=== PATIENT | male | born 1980 | race Caucasian/White ===

== ENCOUNTER 2023-07-07 14:25 | Emergency (ER) | payer OTHER, SELFPAY ==
[2023-07-07 14:38] VITALS: BP 156/95; PULSE 92; RESP 20; TEMP 37.2; O2SAT 98; BMI 28.7
[2023-07-07 15:03] LABS: Basophils Absolute Auto 0 /uL (0-100); Basophils Percent Auto 0.7 % (0-2); Eosinophils Absolute Auto 100 /uL (0-450); Eosinophils Percent Auto 1.9 % (2-4); Hematocrit 41.3 % (41-53); Hemoglobin 14.4 g/dL (13.5-17.5); Lymphocytes Absolute Auto 1300 /uL (1100-4500); Lymphocytes Percent Auto 26.5 % (25-40); Mean Corpuscular HGB Conc 34.8 % (30-36); Mean Corpuscular Volume 91.8 fL (80-100); Monocytes Absolute Auto 400 /uL (0-900); Monocytes Percent Auto 9.2 % (3-14); Neutrophils Absolute Auto 2900 /uL (1500-7000); Neutrophils Percent Auto 61.7 % (50-75); Platelet Count 53 X10^3/uL (150-400); Red Cell Distribution Width 21.1 % (11.6-14.8); White Blood Cell Count 4.7 X10^3/uL (4.5-11.0)
[2023-07-07 15:05] LABS: Add Manual Diff / Slide Review SLIDE REVIEW
[2023-07-07 15:25] LABS: Acetaminophen < 10 ug/mL (10-30); Alanine Aminotransferase 40 IU/L (<50); Albumin 3.8 g/dL (3.5-5.0); Alkaline Phosphatase 185 U/L (38-126); Aspartate Aminotransferase 185 IU/L (17-59); BUN Creatinine Ratio 6.1 (6-22); Bilirubin Total 3.8 mg/dL (0.2-1.3); Blood Urea Nitrogen 4 mg/dL (9-20); Calcium 8.2 mg/dL (8.4-10.2); Carbon Dioxide 22 mmol/L (22-32); Chloride 102 mmol/L (98-107); Estimated Glomerular Filt Rate > 60 mL/min (>60); Ethanol (ETOH) 235 mg/dL; Glucose 102 mg/dL (70-100); HEMOLYSIS < 15 (0-50); Potassium 3.1 mmol/L (3.4-5.1); Salicylate < 1.0 mg/dL (<20); Sodium 141 mmol/L (137-145); Total Protein 7.8 g/dL (6.3-8.2)
[2023-07-07 15:31] LABS: Ovalocytes 1+
[2023-07-07 15:35] LABS: Anisocytosis 3+; Tear Drop Cells 1+
[2023-07-07 15:36] LABS: Schistocytes 1+
[2023-07-07 15:42] LABS: Free T4, Direct Thyroxine 1.19 ng/dL (0.78-2.19)
[2023-07-07] MEDS: LORazepam 0.5 MG TABLET 2 MG PO (15:49)
--- NOTE | 2023-07-07 15:49 | ED.PSYCH ---
HPI - Psych <Andrey Poe MD - Last Filed: 07/13/23 08:34> General Chief Complaint: Toxicology Problem Stated Complaint: Anxiety/Depression Time Seen by Provider: 07/07/23 15:11 Source: patient Mode of arrival: EMS History of Present Illness [place] by chief officer. Patient is accepted at [facility] in [place]. He is here for medical clearance. Patient has no SI or HI. He states he is feeling depressed and anxious. He is going through lot of pressure. He has PTSD as well as going through a divorce and he will be retiring in October and has to look for a new job. He does drink alcohol every day. Last alcohol consumption this morning. No seizures or hallucinations. He is had alcohol withdrawals before and is managed very easily states with hydroxyzine. Patient is cooperative in no distress no altered mental status. He has been taking his medications to help for his anxiety and depression. Related Data Allergies Allergy/AdvReac Type Severity Reaction Status Date / Time anthrax vaccine Allergy Intermediate Rash Verified 07/07/23 14:47 Influenza Virus Vaccines Allergy Intermediate Rash Verified 07/07/23 14:47 alprazolam [From Xanax] AdvReac Intermediate Drowsy Verified 07/07/23 14:47 yellow fever vaccine live AdvReac Intermediate Rash Verified 07/07/23 14:47 zolpidem [From Ambien] AdvReac Intermediate Hallucinati Verified 07/07/23 14:47 ng Review of Systems <Andrey Poe MD - Last Filed: 07/13/23 08:34> Review of Systems Narrative: GENERAL: negative chills, fatigue, malaise, fever, sweats. HEENT: negative sinus pain, ear pain, sore throat RESPIRATORY: negative dyspnea, cough CARDIOVASCULAR: negative chest pain, palpitations GASTROINTESTINAL: negative nausea, vomiting, abdominal pain : negative dysuria, frequency, hematuria MUSCULOSKELETAL: negative muscle or bony pain SKIN: negative rash, skin lesions NEUROLOGIC: negative weakness, numbness negative seizures negative tremor PSYCH: Positive anxiety positive depression negative SI negative HI ROS Unobtainable: All systems reviewed & are unremarkable except as noted in HPI and below Patient History <Andrey Poe MD - Last Filed: 07/13/23 08:34> tobacco type: vaping alcohol intake frequency: 3 or more drinks per day Exam <Andrey Poe MD - Last Filed: 07/13/23 08:34> Narrative Exam Narrative: GENERAL: in no distress, not toxic not dyspneic HEAD: Normocephalic. EYES: Pupils equal round ENT: Mucous membranes moist. NECK: Trachea midline. CARDIOVASCULAR: Regular rate and rhythm RESPIRATORY: Clear to auscultation. Breath sounds equal bilaterally. No wheezes, rales, or rhonchi. GASTROINTESTINAL: Abdomen soft, non-tender EXTREMITIES: No gross deformities. BACK: No flank tenderness. NEURO: AOx4. Clear speech no facial droop SKIN: Warm and dry PSYCH: Slightly anxious. Slightly rapid speech, is very cooperative. No SI no HI. Slight depressed affect. Initial Vital Signs Initial Vital Signs: Vital Signs Temperature 98.9 F 07/07/23 14:38 Pulse Rate 92 H 07/07/23 14:38 Respiratory Rate 20 07/07/23 14:38 Blood Pressure 156/95 H 07/07/23 14:38 Pulse Oximetry 98 07/07/23 14:38 Oxygen Delivery Method Room Air 07/07/23 14:38 <Charly Duarte DO - Last Filed: 07/08/23 23:54> Initial Vital Signs Initial Vital Signs: Vital Signs Temperature 98.9 F 07/07/23 14:38 Pulse Rate 92 H 07/07/23 14:38 Respiratory Rate 20 07/07/23 14:38 Blood Pressure 156/95 H 07/07/23 14:38 Pulse Oximetry 98 07/07/23 14:38 Oxygen Delivery Method Room Air 07/07/23 14:38 <Julio Villar DO - Last Filed: 07/08/23 11:39> Initial Vital Signs Initial Vital Signs: Vital Signs Temperature 98.9 F 07/07/23 14:38 Pulse Rate 92 H 07/07/23 14:38 Respiratory Rate 20 07/07/23 14:38 Blood Pressure 156/95 H 07/07/23 14:38 Pulse Oximetry 98 07/07/23 14:38 Oxygen Delivery Method Room Air 07/07/23 14:38 Course <Andrey Poe MD - Last Filed: 07/13/23 08:34> Orders Ordered: Discontinued Medications Lorazepam (Lorazepam 0.5 Mg Tablet) 2 mg PO NOW ONE Stop: 07/07/23 15:21 Last Admin: 07/07/23 15:49 Dose: 2 mg Documented By: KATERINE Nicotine (Nicotine 21 Mg Patch) 21 mg TOP NOW ONE Stop: 07/08/23 01:13 Last Admin: 07/08/23 02:05 Dose: 21 mg Documented By: TRACI Phenobarbital (Phenobarbital 65 Mg/Ml Vial) 260 mg IV NOW ONE Stop: 07/08/23 00:56 Last Admin: 07/08/23 01:03 Dose: 260 mg Documented By: BAN Phenobarbital (Phenobarbital 65 Mg/Ml Vial) 260 mg IV NOW ONE Stop: 07/08/23 06:17 Last Admin: 07/08/23 06:54 Dose: 260 mg Documented By: BAN Vital Signs Vital signs: Vital Signs - 8 hr 07/08/23 04:00 07/08/23 04:00 07/08/23 04:30 Pulse Rate 102 H 103 H Respiratory Rate 18 Blood Pressure 134/81 Pulse Oximetry 92 93 Oxygen Delivery Method 07/08/23 04:30 07/08/23 05:00 07/08/23 05:00 Pulse Rate 95 H Respiratory Rate Blood Pressure 129/81 142/78 H Pulse Oximetry 93 Oxygen Delivery Method Room Air 07/08/23 05:30 07/08/23 06:00 07/08/23 06:00 Pulse Rate 108 H 113 H Respiratory Rate 23 19 Blood Pressure 124/74 Pulse Oximetry 93 92 Oxygen Delivery Method 07/08/23 06:30 07/08/23 07:00 07/08/23 07:00 Pulse Rate 126 H 110 H Respiratory Rate 13 Blood Pressure 131/82 Pulse Oximetry 96 97 Oxygen Delivery Method 07/08/23 07:30 07/08/23 08:00 07/08/23 08:00 Pulse Rate 106 H 112 H Respiratory Rate 25 H 15 Blood Pressure 143/74 H Pulse Oximetry 99 Oxygen Delivery Method 07/08/23 08:30 07/08/23 08:50 07/08/23 08:50 Pulse Rate 121 H 119 H Respiratory Rate 14 17 Blood Pressure 158/83 H Pulse Oximetry 97 96 Oxygen Delivery Method 07/08/23 09:00 07/08/23 09:00 07/08/23 09:30 Pulse Rate 116 H 116 H Respiratory Rate 15 Blood Pressure 154/79 H Pulse Oximetry 98 98 Oxygen Delivery Method 07/08/23 10:00 07/08/23 10:00 07/08/23 10:30 Pulse Rate 118 H 109 H Respiratory Rate 16 11 L Blood Pressure 148/83 H Pulse Oximetry 95 94 Oxygen Delivery Method 07/08/23 11:00 07/08/23 11:00 Pulse Rate 118 H Respiratory Rate Blood Pressure 152/70 H Pulse Oximetry 98 Oxygen Delivery Method <Charly Duarte DO - Last Filed: 07/08/23 23:54> Orders Ordered: Discontinued Medications Lorazepam (Lorazepam 0.5 Mg Tablet) 2 mg PO NOW ONE Stop: 07/07/23 15:21 Last Admin: 07/07/23 15:49 Dose: 2 mg Documented By: KATERINE Nicotine (Nicotine 21 Mg Patch) 21 mg TOP NOW ONE Stop: 07/08/23 01:13 Last Admin: 07/08/23 02:05 Dose: 21 mg Documented By: TRACI Phenobarbital (Phenobarbital 65 Mg/Ml Vial) 260 mg IV NOW ONE Stop: 07/08/23 00:56 Last Admin: 07/08/23 01:03 Dose: 260 mg Documented By: BAN Phenobarbital (Phenobarbital 65 Mg/Ml Vial) 260 mg IV NOW ONE Stop: 07/08/23 06:17 Last Admin: 07/08/23 06:54 Dose: 260 mg Documented By: BAN Vital Signs Vital signs: Vital Signs - 8 hr 07/08/23 04:00 07/08/23 04:00 07/08/23 04:30 Pulse Rate 102 H 103 H Respiratory Rate 18 Blood Pressure 134/81 Pulse Oximetry 92 93 Oxygen Delivery Method 07/08/23 04:30 07/08/23 05:00 07/08/23 05:00 Pulse Rate 95 H Respiratory Rate Blood Pressure 129/81 142/78 H Pulse Oximetry 93 Oxygen Delivery Method Room Air 07/08/23 05:30 07/08/23 06:00 07/08/23 06:00 Pulse Rate 108 H 113 H Respiratory Rate 23 19 Blood Pressure 124/74 Pulse Oximetry 93 92 Oxygen Delivery Method 07/08/23 06:30 07/08/23 07:00 07/08/23 07:00 Pulse Rate 126 H 110 H Respiratory Rate 13 Blood Pressure 131/82 Pulse Oximetry 96 97 Oxygen Delivery Method 07/08/23 07:30 07/08/23 08:00 07/08/23 08:00 Pulse Rate 106 H 112 H Respiratory Rate 25 H 15 Blood Pressure 143/74 H Pulse Oximetry 99 Oxygen Delivery Method 07/08/23 08:30 07/08/23 08:50 07/08/23 08:50 Pulse Rate 121 H 119 H Respiratory Rate 14 17 Blood Pressure 158/83 H Pulse Oximetry 97 96 Oxygen Delivery Method 07/08/23 09:00 07/08/23 09:00 07/08/23 09:30 Pulse Rate 116 H 116 H Respiratory Rate 15 Blood Pressure 154/79 H Pulse Oximetry 98 98 Oxygen Delivery Method 07/08/23 10:00 07/08/23 10:00 07/08/23 10:30 Pulse Rate 118 H 109 H Respiratory Rate 16 11 L Blood Pressure 148/83 H Pulse Oximetry 95 94 Oxygen Delivery Method 07/08/23 11:00 07/08/23 11:00 Pulse Rate 118 H Respiratory Rate Blood Pressure 152/70 H Pulse Oximetry 98 Oxygen Delivery Method <Julio Villar DO - Last Filed: 07/08/23 11:39> Orders Ordered: Discontinued Medications Lorazepam (Lorazepam 0.5 Mg Tablet) 2 mg PO NOW ONE Stop: 07/07/23 15:21 Last Admin: 07/07/23 15:49 Dose: 2 mg Documented By: KATERINE Nicotine (Nicotine 21 Mg Patch) 21 mg TOP NOW ONE Stop: 07/08/23 01:13 Last Admin: 07/08/23 02:05 Dose: 21 mg Documented By: TRACI Phenobarbital (Phenobarbital 65 Mg/Ml Vial) 260 mg IV NOW ONE Stop: 07/08/23 00:56 Last Admin: 07/08/23 01:03 Dose: 260 mg Documented By: BAN Phenobarbital (Phenobarbital 65 Mg/Ml Vial) 260 mg IV NOW ONE Stop: 07/08/23 06:17 Last Admin: 07/08/23 06:54 Dose: 260 mg Documented By: BAN Vital Signs Vital signs: Vital Signs - 8 hr 07/08/23 04:00 07/08/23 04:00 07/08/23 04:30 Pulse Rate 102 H 103 H Respiratory Rate 18 Blood Pressure 134/81 Pulse Oximetry 92 93 Oxygen Delivery Method 07/08/23 04:30 07/08/23 05:00 07/08/23 05:00 Pulse Rate 95 H Respiratory Rate Blood Pressure 129/81 142/78 H Pulse Oximetry 93 Oxygen Delivery Method Room Air 07/08/23 05:30 07/08/23 06:00 07/08/23 06:00 Pulse Rate 108 H 113 H Respiratory Rate 23 19 Blood Pressure 124/74 Pulse Oximetry 93 92 Oxygen Delivery Method 07/08/23 06:30 07/08/23 07:00 07/08/23 07:00 Pulse Rate 126 H 110 H Respiratory Rate 13 Blood Pressure 131/82 Pulse Oximetry 96 97 Oxygen Delivery Method 07/08/23 07:30 07/08/23 08:00 07/08/23 08:00 Pulse Rate 106 H 112 H Respiratory Rate 25 H 15 Blood Pressure 143/74 H Pulse Oximetry 99 Oxygen Delivery Method 07/08/23 08:30 07/08/23 08:50 07/08/23 08:50 Pulse Rate 121 H 119 H Respiratory Rate 14 17 Blood Pressure 158/83 H Pulse Oximetry 97 96 Oxygen Delivery Method 07/08/23 09:00 07/08/23 09:00 07/08/23 09:30 Pulse Rate 116 H 116 H Respiratory Rate 15 Blood Pressure 154/79 H Pulse Oximetry 98 98 Oxygen Delivery Method 07/08/23 10:00 07/08/23 10:00 07/08/23 10:30 Pulse Rate 118 H 109 H Respiratory Rate 16 11 L Blood Pressure 148/83 H Pulse Oximetry 95 94 Oxygen Delivery Method 07/08/23 11:00 07/08/23 11:00 Pulse Rate 118 H Respiratory Rate Blood Pressure 152/70 H Pulse Oximetry 98 Oxygen Delivery Method MDM - Psych <Andrey Poe MD - Last Filed: 07/13/23 08:34> Lab Data 07/07/23 14:55 07/07/23 13:45 Labs: Lab Results 07/07/23 07/07/23 07/07/23 Range/Units 13:45 14:55 15:21 WBC 4.7 (4.5-11.0) X10^3/uL RBC 4.50 (4.5-5.9) X10^6/uL Hgb 14.4 (13.5-17.5) g/dL Hct 41.3 (41-53) % MCV 91.8 (80-100) fL MCH 32.0 (26-34) PG MCHC 34.8 (30-36) % RDW 21.1 H (11.6-14.8) % Plt Count 53 L (150-400) X10^3/uL Neut % (Auto) 61.7 (50-75) % Lymph % (Auto) 26.5 (25-40) % Cochran % (Auto) 9.2 (3-14) % Eos % (Auto) 1.9 L (2-4) % Baso % (Auto) 0.7 (0-2) % Neut # (Auto) 2900 (0132-4079) /uL Lymph # (Auto) 1300 (0687-3292) /uL Cochran # (Auto) 400 (0-900) /uL Eos # (Auto) 100 (0-450) /uL Baso # (Auto) 0 (0-100) /uL RBC Morphology See below Anisocytosis 3+ H Tear Drop Cells 1+ H Ovalocytes 1+ H Schistocytes 1+ H Sodium 141 (137-145) mmol/L Potassium 3.1 L (3.4-5.1) mmol/L Chloride 102 (98-107) mmol/L Carbon Dioxide 22 (22-32) mmol/L BUN 4 L (9-20) mg/dL Creatinine 0.66 (0.66-1.25) mg/dL Estimated GFR > 60 (>60) mL/min BUN/Creatinine Ratio 6.1 (6-22) Glucose 102 H (70-100) mg/dL Calcium 8.2 L (8.4-10.2) mg/dL Total Bilirubin 3.8 H (0.2-1.3) mg/dL AST 185 H (17-59) IU/L ALT 40 (<50) IU/L Alkaline Phosphatase 185 H (38-126) U/L Total Protein 7.8 (6.3-8.2) g/dL Albumin 3.8 (3.5-5.0) g/dL Globulin 4.0 (1.7-4.1) g/dL Albumin/Globulin Ratio 1.0 (1.0-2.8) TSH 1.84 (0.47-4.68) uIU/mL Free T4 1.19 (0.78-2.19) ng/dL Urine Color Yellow Urine Appearance Clear Urine pH 7.0 (4.5-8.0) Ur Specific [place] 1.020 (1.000-1.035) Urine Protein 1+ H (Negative) Urine Glucose (UA) Negative (Negative) g/dL Urine Ketones 1+ H (NEGATIVE) Urine Occult Blood Negative (Negative) Urine Nitrate Negative (Negative) Urine Bilirubin 2+ H (NEGATIVE) Ur Bilirubin Confirm Positive H (Negative) Urine Urobilinogen 2.0 H (0.2) E.U./dL Ur Leukocyte Esterase Negative (NEGATIVE) Urine RBC 1-5/hpf (0-5/HPF) Urine WBC (0-5/HPF) Ur Squamous Epith Cells (0-5/HPF) Ur Transition Epith Cell Ur Renal Epithelial Cell Calcium Oxalate Crystal Uric Acid Crystals Triple Phos Crystals Other Crystals Amorphous Sediment Urine Bacteria (None) Hyaline Casts Granular Casts RBC Casts WBC Casts Other Casts Urine Mucus Urine Trichomonas Urine Yeast Urine Sperm Ur Culture Indicated? Micro UA Comment Salicylates < 1.0 (<20) mg/dL U Opiates 300ng/mL cut (Negative) Ur Oxycodone Screen (Negative) Urine Methadone Screen (Negative) Acetaminophen < 10 (10-30) ug/mL Ur Barbiturates Screen (Negative) U Tricyclic Antidepress (Negative) Ur Phencyclidine Scrn (Negative) Ur Amphetamines Screen (Negative) U Methamphetamines Scrn (Negative) Ur MDMA Scrn (Ecstasy) (Negative) U Benzodiazepines Scrn (Negative) Urine Cocaine Screen (Negative) U Marijuana (THC) Screen (Negative) Ethyl Alcohol 235 H ( - 10) mg/dL 07/07/23 07/07/23 07/07/23 Range/Units 15:21 15:21 15:21 WBC (4.5-11.0) X10^3/uL RBC (4.5-5.9) X10^6/uL Hgb (13.5-17.5) g/dL Hct (41-53) % MCV (80-100) fL MCH (26-34) PG MCHC (30-36) % RDW (11.6-14.8) % Plt Count (150-400) X10^3/uL Neut % (Auto) (50-75) % Lymph % (Auto) (25-40) % Cochran % (Auto) (3-14) % Eos % (Auto) (2-4) % Baso % (Auto) (0-2) % Neut # (Auto) (1130-3584) /uL Lymph # (Auto) (2602-9434) /uL Cochran # (Auto) (0-900) /uL Eos # (Auto) (0-450) /uL Baso # (Auto) (0-100) /uL RBC Morphology Anisocytosis Tear Drop Cells Ovalocytes Schistocytes Sodium (137-145) mmol/L Potassium (3.4-5.1) mmol/L Chloride (98-107) mmol/L Carbon Dioxide (22-32) mmol/L BUN (9-20) mg/dL Creatinine (0.66-1.25) mg/dL Estimated GFR (>60) mL/min BUN/Creatinine Ratio (6-22) Glucose (70-100) mg/dL Calcium (8.4-10.2) mg/dL Total Bilirubin (0.2-1.3) mg/dL AST (17-59) IU/L ALT (<50) IU/L Alkaline Phosphatase (38-126) U/L Total Protein (6.3-8.2) g/dL Albumin (3.5-5.0) g/dL Globulin (1.7-4.1) g/dL Albumin/Globulin Ratio (1.0-2.8) TSH (0.47-4.68) uIU/mL Free T4 (0.78-2.19) ng/dL Urine Color Urine Appearance Urine pH (4.5-8.0) Ur Specific [place] (1.000-1.035) Urine Protein (Negative) Urine Glucose (UA) (Negative) g/dL Urine Ketones (NEGATIVE) Urine Occult Blood (Negative) Urine Nitrate (Negative) Urine Bilirubin (NEGATIVE) Ur Bilirubin Confirm (Negative) Urine Urobilinogen (0.2) E.U./dL Ur Leukocyte Esterase (NEGATIVE) Urine RBC Cancelled (0-5/HPF) Urine WBC 1-5/hpf Cancelled (0-5/HPF) Ur Squamous Epith Cells 1-5 /hpf Cancelled (0-5/HPF) Ur Transition Epith Cell Cancelled Ur Renal Epithelial Cell Cancelled Calcium Oxalate Crystal Cancelled Uric Acid Crystals Cancelled Triple Phos Crystals Cancelled Other Crystals Cancelled Amorphous Sediment Cancelled Urine Bacteria Occasional (0-1) (None) Hyaline Casts Granular Casts RBC Casts WBC Casts Other Casts Urine Mucus Urine Trichomonas Urine Yeast Urine Sperm Ur Culture Indicated? Micro UA Comment Salicylates (<20) mg/dL U Opiates 300ng/mL cut (Negative) Ur Oxycodone Screen (Negative) Urine Methadone Screen (Negative) Acetaminophen (10-30) ug/mL Ur Barbiturates Screen (Negative) U Tricyclic Antidepress (Negative) Ur Phencyclidine Scrn (Negative) Ur Amphetamines Screen (Negative) U Methamphetamines Scrn (Negative) Ur MDMA Scrn (Ecstasy) (Negative) U Benzodiazepines Scrn (Negative) Urine Cocaine Screen (Negative) U Marijuana (THC) Screen (Negative) Ethyl Alcohol ( - 10) mg/dL 07/07/23 07/07/23 Range/Units 15:21 15:21 WBC (4.5-11.0) X10^3/uL RBC (4.5-5.9) X10^6/uL Hgb (13.5-17.5) g/dL Hct (41-53) % MCV (80-100) fL MCH (26-34) PG MCHC (30-36) % RDW (11.6-14.8) % Plt Count (150-400) X10^3/uL Neut % (Auto) (50-75) % Lymph % (Auto) (25-40) % Cochran % (Auto) (3-14) % Eos % (Auto) (2-4) % Baso % (Auto) (0-2) % Neut # (Auto) (4599-3318) /uL Lymph # (Auto) (7482-6079) /uL Cochran # (Auto) (0-900) /uL Eos # (Auto) (0-450) /uL Baso # (Auto) (0-100) /uL RBC Morphology Anisocytosis Tear Drop Cells Ovalocytes Schistocytes Sodium (137-145) mmol/L Potassium (3.4-5.1) mmol/L Chloride (98-107) mmol/L Carbon Dioxide (22-32) mmol/L BUN (9-20) mg/dL Creatinine (0.66-1.25) mg/dL Estimated GFR (>60) mL/min BUN/Creatinine Ratio (6-22) Glucose (70-100) mg/dL Calcium (8.4-10.2) mg/dL Total Bilirubin (0.2-1.3) mg/dL AST (17-59) IU/L ALT (<50) IU/L Alkaline Phosphatase (38-126) U/L Total Protein (6.3-8.2) g/dL Albumin (3.5-5.0) g/dL Globulin (1.7-4.1) g/dL Albumin/Globulin Ratio (1.0-2.8) TSH (0.47-4.68) uIU/mL Free T4 (0.78-2.19) ng/dL Urine Color Urine Appearance Urine pH (4.5-8.0) Ur Specific [place] (1.000-1.035) Urine Protein (Negative) Urine Glucose (UA) (Negative) g/dL Urine Ketones (NEGATIVE) Urine Occult Blood (Negative) Urine Nitrate (Negative) Urine Bilirubin (NEGATIVE) Ur Bilirubin Confirm (Negative) Urine Urobilinogen (0.2) E.U./dL Ur Leukocyte Esterase (NEGATIVE) Urine RBC (0-5/HPF) Urine WBC (0-5/HPF) Ur Squamous Epith Cells (0-5/HPF) Ur Transition Epith Cell Ur Renal Epithelial Cell Calcium Oxalate Crystal Uric Acid Crystals Triple Phos Crystals Other Crystals Amorphous Sediment Urine Bacteria Cancelled (None) Hyaline Casts Cancelled Granular Casts Cancelled RBC Casts Cancelled WBC Casts Cancelled Other Casts Cancelled Urine Mucus Cancelled Urine Trichomonas Cancelled Urine Yeast Cancelled Urine Sperm Cancelled Ur Culture Indicated? TNP Cancelled Micro UA Comment Cancelled Salicylates (<20) mg/dL U Opiates 300ng/mL cut Negative (Negative) Ur Oxycodone Screen Negative (Negative) Urine Methadone Screen Negative (Negative) Acetaminophen (10-30) ug/mL Ur Barbiturates Screen Negative (Negative) U Tricyclic Antidepress Negative (Negative) Ur Phencyclidine Scrn Negative (Negative) Ur Amphetamines Screen Negative (Negative) U Methamphetamines Scrn Negative (Negative) Ur MDMA Scrn (Ecstasy) Negative (Negative) U Benzodiazepines Scrn Negative (Negative) Urine Cocaine Screen Negative (Negative) U Marijuana (THC) Screen Positive H (Negative) Ethyl Alcohol ( - 10) mg/dL Urine Dip Bedside Urine Glucose Negative Bedside Urine Bilirubin - Negative Bedside Urine Ketone + 15 Urine Specific [place] 1.015 Bedside Urine Occult Blood - Negative Bedside Urine pH 6.0 Bedside Urine Protein +/- 15 Bedside Urine Urobilinogen - Negative Bedside Urine Nitrite - Negative Bedside Urine Leukocytes +/- 15 Esterase MDM Narrative Medical decision making [place]om[place] by chief officer. Patient is accepted at [facility] in [place]. He is here for medical clearance. Patient has no SI or HI. He states he is feeling depressed and anxious. He is going through lot of pressure. He has PTSD as well as going through a divorce and he will be retiring in October and has to look for a new job. He does drink alcohol every day. Last alcohol consumption this morning. No seizures or hallucinations. He is had alcohol withdrawals before and is managed very easily states with hydroxyzine. Patient is cooperative in no distress no altered mental status. He has been taking his medications to help for his anxiety and depression. After history and exam CBC CMP drug screen Tylenol aspirin TSH social work consult MDM CC: Depression anxiety alcohol abuse Complicating co-morbidities: PTSD/depression/anxiety/major life changes Data collected from: Patient Medical records reviewed: No recent visit for this complaint Differential considered: Includes but not limited to anxiety depression alcohol abuse Exam documented above, pertinent findings include: Cooperative, slight flat affect Lab Test results independently reviewed as above. 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 He is cooperative and voluntary, is motivated to go to [facility] Discussion: Appropriate for transfer. Patient is already arranged to go to [facility]. He is voluntary Diagnosis: Anxiety/depression 6:00 p.m. Lui: Sign out to Dr Duarte, patient has been medically cleared but awaiting for provider at [facility] to call back for acceptance. Social work has seen patient here as well <Charly Duarte DO - Last Filed: 07/08/23 23:54> Lab Data Labs: Lab Results 07/07/23 07/07/23 07/07/23 Range/Units 13:45 14:55 15:21 WBC 4.7 (4.5-11.0) X10^3/uL RBC 4.50 (4.5-5.9) X10^6/uL Hgb 14.4 (13.5-17.5) g/dL Hct 41.3 (41-53) % MCV 91.8 (80-100) fL MCH 32.0 (26-34) PG MCHC 34.8 (30-36) % RDW 21.1 H (11.6-14.8) % Plt Count 53 L (150-400) X10^3/uL Neut % (Auto) 61.7 (50-75) % Lymph % (Auto) 26.5 (25-40) % [place]ran % (Auto) 9.2 (3-14) % Eos % (Auto) 1.9 L (2-4) % Baso % (Auto) 0.7 (0-2) % Neut # (Auto) 2900 (6506-0922) /uL Lymph # (Auto) 1300 (3056-6751) /uL [place]ran # (Auto) 400 (0-900) /uL Eos # (Auto) 100 (0-450) /uL Baso # (Auto) 0 (0-100) /uL RBC Morphology See below Anisocytosis 3+ H Tear Drop Cells 1+ H Ovalocytes 1+ H Schistocytes 1+ H Sodium 141 (137-145) mmol/L Potassium 3.1 L (3.4-5.1) mmol/L Chloride 102 (98-107) mmol/L Carbon Dioxide 22 (22-32) mmol/L BUN 4 L (9-20) mg/dL Creatinine 0.66 (0.66-1.25) mg/dL Estimated GFR > 60 (>60) mL/min BUN/Creatinine Ratio 6.1 (6-22) Glucose 102 H (70-100) mg/dL Calcium 8.2 L (8.4-10.2) mg/dL Total Bilirubin 3.8 H (0.2-1.3) mg/dL AST 185 H (17-59) IU/L ALT 40 (<50) IU/L Alkaline Phosphatase 185 H (38-126) U/L Total Protein 7.8 (6.3-8.2) g/dL Albumin 3.8 (3.5-5.0) g/dL Globulin 4.0 (1.7-4.1) g/dL Albumin/Globulin Ratio 1.0 (1.0-2.8) TSH 1.84 (0.47-4.68) uIU/mL Free T4 1.19 (0.78-2.19) ng/dL Urine Color Yellow Urine Appearance Clear Urine pH 7.0 (4.5-8.0) Ur Specific [place] 1.020 (1.000-1.035) Urine Protein 1+ H (Negative) Urine Glucose (UA) Negative (Negative) g/dL Urine Ketones 1+ H (NEGATIVE) Urine Occult Blood Negative (Negative) Urine Nitrate Negative (Negative) Urine Bilirubin 2+ H (NEGATIVE) Ur Bilirubin Confirm Positive H (Negative) Urine Urobilinogen 2.0 H (0.2) E.U./dL Ur Leukocyte Esterase Negative (NEGATIVE) Urine RBC 1-5/hpf (0-5/HPF) Urine WBC (0-5/HPF) Ur Squamous Epith Cells (0-5/HPF) Ur Transition Epith Cell Ur Renal Epithelial Cell Calcium Oxalate Crystal Uric Acid Crystals Triple Phos Crystals Other Crystals Amorphous Sediment Urine Bacteria (None) Hyaline Casts Granular Casts RBC Casts WBC Casts Other Casts Urine Mucus Urine Trichomonas Urine Yeast Urine Sperm Ur Culture Indicated? Micro UA Comment Salicylates < 1.0 (<20) mg/dL U Opiates 300ng/mL cut (Negative) Ur Oxycodone Screen (Negative) Urine Methadone Screen (Negative) Acetaminophen < 10 (10-30) ug/mL Ur Barbiturates Screen (Negative) U Tricyclic Antidepress (Negative) Ur Phencyclidine Scrn (Negative) Ur Amphetamines Screen (Negative) U Methamphetamines Scrn (Negative) Ur MDMA Scrn (Ecstasy) (Negative) U Benzodiazepines Scrn (Negative) Urine Cocaine Screen (Negative) U Marijuana (THC) Screen (Negative) Ethyl Alcohol 235 H ( - 10) mg/dL 07/07/23 07/07/23 07/07/23 Range/Units 15:21 15:21 15:21 WBC (4.5-11.0) X10^3/uL RBC (4.5-5.9) X10^6/uL Hgb (13.5-17.5) g/dL Hct (41-53) % MCV (80-100) fL MCH (26-34) PG MCHC (30-36) % RDW (11.6-14.8) % Plt Count (150-400) X10^3/uL Neut % (Auto) (50-75) % Lymph % (Auto) (25-40) % Cochran % (Auto) (3-14) % Eos % (Auto) (2-4) % Baso % (Auto) (0-2) % Neut # (Auto) (8847-7064) /uL Lymph # (Auto) (3166-4408) /uL Cochran # (Auto) (0-900) /uL Eos # (Auto) (0-450) /uL Baso # (Auto) (0-100) /uL RBC Morphology Anisocytosis Tear Drop Cells Ovalocytes Schistocytes Sodium (137-145) mmol/L Potassium (3.4-5.1) mmol/L Chloride (98-107) mmol/L Carbon Dioxide (22-32) mmol/L BUN (9-20) mg/dL Creatinine (0.66-1.25) mg/dL Estimated GFR (>60) mL/min BUN/Creatinine Ratio (6-22) Glucose (70-100) mg/dL Calcium (8.4-10.2) mg/dL Total Bilirubin (0.2-1.3) mg/dL AST (17-59) IU/L ALT (<50) IU/L Alkaline Phosphatase (38-126) U/L Total Protein (6.3-8.2) g/dL Albumin (3.5-5.0) g/dL Globulin (1.7-4.1) g/dL Albumin/Globulin Ratio (1.0-2.8) TSH (0.47-4.68) uIU/mL Free T4 (0.78-2.19) ng/dL Urine Color Urine Appearance Urine pH (4.5-8.0) Ur Specific [place] (1.000-1.035) Urine Protein (Negative) Urine Glucose (UA) (Negative) g/dL Urine Ketones (NEGATIVE) Urine Occult Blood (Negative) Urine Nitrate (Negative) Urine Bilirubin (NEGATIVE) Ur Bilirubin Confirm (Negative) Urine Urobilinogen (0.2) E.U./dL Ur Leukocyte Esterase (NEGATIVE) Urine RBC Cancelled (0-5/HPF) Urine WBC 1-5/hpf Cancelled (0-5/HPF) Ur Squamous Epith Cells 1-5 /hpf Cancelled (0-5/HPF) Ur Transition Epith Cell Cancelled Ur Renal Epithelial Cell Cancelled Calcium Oxalate Crystal Cancelled Uric Acid Crystals Cancelled Triple Phos Crystals Cancelled Other Crystals Cancelled Amorphous Sediment Cancelled Urine Bacteria Occasional (0-1) (None) Hyaline Casts Granular Casts RBC Casts WBC Casts Other Casts Urine Mucus Urine Trichomonas Urine Yeast Urine Sperm Ur Culture Indicated? Micro UA Comment Salicylates (<20) mg/dL U Opiates 300ng/mL cut (Negative) Ur Oxycodone Screen (Negative) Urine Methadone Screen (Negative) Acetaminophen (10-30) ug/mL Ur Barbiturates Screen (Negative) U Tricyclic Antidepress (Negative) Ur Phencyclidine Scrn (Negative) Ur Amphetamines Screen (Negative) U Methamphetamines Scrn (Negative) Ur MDMA Scrn (Ecstasy) (Negative) U Benzodiazepines Scrn (Negative) Urine Cocaine Screen (Negative) U Marijuana (THC) Screen (Negative) Ethyl Alcohol ( - 10) mg/dL 07/07/23 07/07/23 Range/Units 15:21 15:21 WBC (4.5-11.0) X10^3/uL RBC (4.5-5.9) X10^6/uL Hgb (13.5-17.5) g/dL Hct (41-53) % MCV (80-100) fL MCH (26-34) PG MCHC (30-36) % RDW (11.6-14.8) % Plt Count (150-400) X10^3/uL Neut % (Auto) (50-75) % Lymph % (Auto) (25-40) % Cochran % (Auto) (3-14) % Eos % (Auto) (2-4) % Baso % (Auto) (0-2) % Neut # (Auto) (6465-1183) /uL Lymph # (Auto) (6951-4341) /uL Cochran # (Auto) (0-900) /uL Eos # (Auto) (0-450) /uL Baso # (Auto) (0-100) /uL RBC Morphology Anisocytosis Tear Drop Cells Ovalocytes Schistocytes Sodium (137-145) mmol/L Potassium (3.4-5.1) mmol/L Chloride (98-107) mmol/L Carbon Dioxide (22-32) mmol/L BUN (9-20) mg/dL Creatinine (0.66-1.25) mg/dL Estimated GFR (>60) mL/min BUN/Creatinine Ratio (6-22) Glucose (70-100) mg/dL Calcium (8.4-10.2) mg/dL Total Bilirubin (0.2-1.3) mg/dL AST (17-59) IU/L ALT (<50) IU/L Alkaline Phosphatase (38-126) U/L Total Protein (6.3-8.2) g/dL Albumin (3.5-5.0) g/dL Globulin (1.7-4.1) g/dL Albumin/Globulin Ratio (1.0-2.8) TSH (0.47-4.68) uIU/mL Free T4 (0.78-2.19) ng/dL Urine Color Urine Appearance Urine pH (4.5-8.0) Ur Specific [place] (1.000-1.035) Urine Protein (Negative) Urine Glucose (UA) (Negative) g/dL Urine Ketones (NEGATIVE) Urine Occult Blood (Negative) Urine Nitrate (Negative) Urine Bilirubin (NEGATIVE) Ur Bilirubin Confirm (Negative) Urine Urobilinogen (0.2) E.U./dL Ur Leukocyte Esterase (NEGATIVE) Urine RBC (0-5/HPF) Urine WBC (0-5/HPF) Ur Squamous Epith Cells (0-5/HPF) Ur Transition Epith Cell Ur Renal Epithelial Cell Calcium Oxalate Crystal Uric Acid Crystals Triple Phos Crystals Other Crystals Amorphous Sediment Urine Bacteria Cancelled (None) Hyaline Casts Cancelled Granular Casts Cancelled RBC Casts Cancelled WBC Casts Cancelled Other Casts Cancelled Urine Mucus Cancelled Urine Trichomonas Cancelled Urine Yeast Cancelled Urine Sperm Cancelled Ur Culture Indicated? TNP Cancelled Micro UA Comment Cancelled Salicylates (<20) mg/dL U Opiates 300ng/mL cut Negative (Negative) Ur Oxycodone Screen Negative (Negative) Urine Methadone Screen Negative (Negative) Acetaminophen (10-30) ug/mL Ur Barbiturates Screen Negative (Negative) U Tricyclic Antidepress Negative (Negative) Ur Phencyclidine Scrn Negative (Negative) Ur Amphetamines Screen Negative (Negative) U Methamphetamines Scrn Negative (Negative) Ur MDMA Scrn (Ecstasy) Negative (Negative) U Benzodiazepines Scrn Negative (Negative) Urine Cocaine Screen Negative (Negative) U Marijuana (THC) Screen Positive H (Negative) Ethyl Alcohol ( - 10) mg/dL Urine Dip Bedside Urine Glucose Negative Bedside Urine Bilirubin - Negative Bedside Urine Ketone + 15 Urine Specific [place] 1.015 Bedside Urine Occult Blood - Negative Bedside Urine pH 6.0 Bedside Urine Protein +/- 15 Bedside Urine Urobilinogen - Negative Bedside Urine Nitrite - Negative Bedside Urine Leukocytes +/- 15 Esterase MDM Narrative Medical decision [place] Accompanied by chief officer. Patient is accepted at [facility] in [place]. He is here for medical clearance. Patient has no SI or HI. He states he is feeling depressed and anxious. He is going through lot of pressure. He has PTSD as well as going through a divorce and he will be retiring in October and has to look for a new job. He does drink alcohol every day. Last alcohol consumption this morning. No seizures or hallucinations. He is had alcohol withdrawals before and is managed very easily states with hydroxyzine. Patient is cooperative in no distress no altered mental status. He has been taking his medications to help for his anxiety and depression. After history and exam CBC CMP drug screen Tylenol aspirin TSH social work consult MDM CC: Depression anxiety alcohol abuse Complicating co-morbidities: PTSD/depression/anxiety/major life changes Data collected from: Patient Medical records reviewed: No recent visit for this complaint Differential considered: Includes but not limited to anxiety depression alcohol abuse Exam documented above, pertinent findings include: Cooperative, slight flat affect Lab Test results independently reviewed as above. 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 He is cooperative and voluntary, is motivated to go to [facility] Discussion: Appropriate for transfer. Patient is already arranged to go to [facility]. He is voluntary Diagnosis: Anxiety/depression 6:00 p.m. Lui: Sign out to Dr Duarte, patient has been medically cleared but awaiting for provider at [facility] to call back for acceptance. Social work has seen patient here as well [Link] (Gerald) Patient received in sign out from [Lui]. I have reviewed the clinical course and performed an independent history and physical exam. 2000 - per ACADEMIC ADVISING DIRECTOR receiving physician at [facility] had no prior authorization or knowledge of this patient and after discussion with our social services designee it is thought that patient is more appropriate for intensive outpatient treatment <Julio Villar DO - Last Filed: 07/08/23 11:39> Lab Data Labs: Lab Results 07/07/23 07/07/23 07/07/23 Range/Units 13:45 14:55 15:21 WBC 4.7 (4.5-11.0) X10^3/uL RBC 4.50 (4.5-5.9) X10^6/uL Hgb 14.4 (13.5-17.5) g/dL Hct 41.3 (41-53) % MCV 91.8 (80-100) fL MCH 32.0 (26-34) PG MCHC 34.8 (30-36) % RDW 21.1 H (11.6-14.8) % Plt Count 53 L (150-400) X10^3/uL Neut % (Auto) 61.7 (50-75) % Lymph % (Auto) 26.5 (25-40) % Cochran % (Auto) 9.2 (3-14) % Eos % (Auto) 1.9 L (2-4) % Baso % (Auto) 0.7 (0-2) % Neut # (Auto) 2900 (3627-4743) /uL Lymph # (Auto) 1300 (9565-6844) /uL Cochran # (Auto) 400 (0-900) /uL Eos # (Auto) 100 (0-450) /uL Baso # (Auto) 0 (0-100) /uL RBC Morphology See below Anisocytosis 3+ H Tear Drop Cells 1+ H Ovalocytes 1+ H Schistocytes 1+ H Sodium 141 (137-145) mmol/L Potassium 3.1 L (3.4-5.1) mmol/L Chloride 102 (98-107) mmol/L Carbon Dioxide 22 (22-32) mmol/L BUN 4 L (9-20) mg/dL Creatinine 0.66 (0.66-1.25) mg/dL Estimated GFR > 60 (>60) mL/min BUN/Creatinine Ratio 6.1 (6-22) Glucose 102 H (70-100) mg/dL Calcium 8.2 L (8.4-10.2) mg/dL Total Bilirubin 3.8 H (0.2-1.3) mg/dL AST 185 H (17-59) IU/L ALT 40 (<50) IU/L Alkaline Phosphatase 185 H (38-126) U/L Total Protein 7.8 (6.3-8.2) g/dL Albumin 3.8 (3.5-5.0) g/dL Globulin 4.0 (1.7-4.1) g/dL Albumin/Globulin Ratio 1.0 (1.0-2.8) TSH 1.84 (0.47-4.68) uIU/mL Free T4 1.19 (0.78-2.19) ng/dL Urine Color Yellow Urine Appearance Clear Urine pH 7.0 (4.5-8.0) Ur Specific [place] 1.020 (1.000-1.035) Urine Protein 1+ H (Negative) Urine Glucose (UA) Negative (Negative) g/dL Urine Ketones 1+ H (NEGATIVE) Urine Occult Blood Negative (Negative) Urine Nitrate Negative (Negative) Urine Bilirubin 2+ H (NEGATIVE) Ur Bilirubin Confirm Positive H (Negative) Urine Urobilinogen 2.0 H (0.2) E.U./dL Ur Leukocyte Esterase Negative (NEGATIVE) Urine RBC 1-5/hpf (0-5/HPF) Urine WBC (0-5/HPF) Ur Squamous Epith Cells (0-5/HPF) Ur Transition Epith Cell Ur Renal Epithelial Cell Calcium Oxalate Crystal Uric Acid Crystals Triple Phos Crystals Other Crystals Amorphous Sediment Urine Bacteria (None) Hyaline Casts Granular Casts RBC Casts WBC Casts Other Casts Urine Mucus Urine Trichomonas Urine Yeast Urine Sperm Ur Culture Indicated? Micro UA Comment Salicylates < 1.0 (<20) mg/dL U Opiates 300ng/mL cut (Negative) Ur Oxycodone Screen (Negative) Urine Methadone Screen (Negative) Acetaminophen < 10 (10-30) ug/mL Ur Barbiturates Screen (Negative) U Tricyclic Antidepress (Negative) Ur Phencyclidine Scrn (Negative) Ur Amphetamines Screen (Negative) U Methamphetamines Scrn (Negative) Ur MDMA Scrn (Ecstasy) (Negative) U Benzodiazepines Scrn (Negative) Urine Cocaine Screen (Negative) U Marijuana (THC) Screen (Negative) Ethyl Alcohol 235 H ( - 10) mg/dL 07/07/23 07/07/23 07/07/23 Range/Units 15:21 15:21 15:21 WBC (4.5-11.0) X10^3/uL RBC (4.5-5.9) X10^6/uL Hgb (13.5-17.5) g/dL Hct (41-53) % MCV (80-100) fL MCH (26-34) PG MCHC (30-36) % RDW (11.6-14.8) % Plt Count (150-400) X10^3/uL Neut % (Auto) (50-75) % Lymph % (Auto) (25-40) % Cochran % (Auto) (3-14) % Eos % (Auto) (2-4) % Baso % (Auto) (0-2) % Neut # (Auto) (2678-2121) /uL Lymph # (Auto) (7670-1920) /uL Cochran # (Auto) (0-900) /uL Eos # (Auto) (0-450) /uL Baso # (Auto) (0-100) /uL RBC Morphology Anisocytosis Tear Drop Cells Ovalocytes Schistocytes Sodium (137-145) mmol/L Potassium (3.4-5.1) mmol/L Chloride (98-107) mmol/L Carbon Dioxide (22-32) mmol/L BUN (9-20) mg/dL Creatinine (0.66-1.25) mg/dL Estimated GFR (>60) mL/min BUN/Creatinine Ratio (6-22) Glucose (70-100) mg/dL Calcium (8.4-10.2) mg/dL Total Bilirubin (0.2-1.3) mg/dL AST (17-59) IU/L ALT (<50) IU/L Alkaline Phosphatase (38-126) U/L Total Protein (6.3-8.2) g/dL Albumin (3.5-5.0) g/dL Globulin (1.7-4.1) g/dL Albumin/Globulin Ratio (1.0-2.8) TSH (0.47-4.68) uIU/mL Free T4 (0.78-2.19) ng/dL Urine Color Urine Appearance Urine pH (4.5-8.0) Ur Specific [place] (1.000-1.035) Urine Protein (Negative) Urine Glucose (UA) (Negative) g/dL Urine Ketones (NEGATIVE) Urine Occult Blood (Negative) Urine Nitrate (Negative) Urine Bilirubin (NEGATIVE) Ur Bilirubin Confirm (Negative) Urine Urobilinogen (0.2) E.U./dL Ur Leukocyte Esterase (NEGATIVE) Urine RBC Cancelled (0-5/HPF) Urine WBC 1-5/hpf Cancelled (0-5/HPF) Ur Squamous Epith Cells 1-5 /hpf Cancelled (0-5/HPF) Ur Transition Epith Cell Cancelled Ur Renal Epithelial Cell Cancelled Calcium Oxalate Crystal Cancelled Uric Acid Crystals Cancelled Triple Phos Crystals Cancelled Other Crystals Cancelled Amorphous Sediment Cancelled Urine Bacteria Occasional (0-1) (None) Hyaline Casts Granular Casts RBC Casts WBC Casts Other Casts Urine Mucus Urine Trichomonas Urine Yeast Urine Sperm Ur Culture Indicated? Micro UA Comment Salicylates (<20) mg/dL U Opiates 300ng/mL cut (Negative) Ur Oxycodone Screen (Negative) Urine Methadone Screen (Negative) Acetaminophen (10-30) ug/mL Ur Barbiturates Screen (Negative) U Tricyclic Antidepress (Negative) Ur Phencyclidine Scrn (Negative) Ur Amphetamines Screen (Negative) U Methamphetamines Scrn (Negative) Ur MDMA Scrn (Ecstasy) (Negative) U Benzodiazepines Scrn (Negative) Urine Cocaine Screen (Negative) U Marijuana (THC) Screen (Negative) Ethyl Alcohol ( - 10) mg/dL 07/07/23 07/07/23 Range/Units 15:21 15:21 WBC (4.5-11.0) X10^3/uL RBC (4.5-5.9) X10^6/uL Hgb (13.5-17.5) g/dL Hct (41-53) % MCV (80-100) fL MCH (26-34) PG MCHC (30-36) % RDW (11.6-14.8) % Plt Count (150-400) X10^3/uL Neut % (Auto) (50-75) % Lymph % (Auto) (25-40) % Cochran % (Auto) (3-14) % Eos % (Auto) (2-4) % Baso % (Auto) (0-2) % Neut # (Auto) (5853-4509) /uL Lymph # (Auto) (0576-6409) /uL Cochran # (Auto) (0-900) /uL Eos # (Auto) (0-450) /uL Baso # (Auto) (0-100) /uL RBC Morphology Anisocytosis Tear Drop Cells Ovalocytes Schistocytes Sodium (137-145) mmol/L Potassium (3.4-5.1) mmol/L Chloride (98-107) mmol/L Carbon Dioxide (22-32) mmol/L BUN (9-20) mg/dL Creatinine (0.66-1.25) mg/dL Estimated GFR (>60) mL/min BUN/Creatinine Ratio (6-22) Glucose (70-100) mg/dL Calcium (8.4-10.2) mg/dL Total Bilirubin (0.2-1.3) mg/dL AST (17-59) IU/L ALT (<50) IU/L Alkaline Phosphatase (38-126) U/L Total Protein (6.3-8.2) g/dL Albumin (3.5-5.0) g/dL Globulin (1.7-4.1) g/dL Albumin/Globulin Ratio (1.0-2.8) TSH (0.47-4.68) uIU/mL Free T4 (0.78-2.19) ng/dL Urine Color Urine Appearance Urine pH (4.5-8.0) Ur Specific [place] (1.000-1.035) Urine Protein (Negative) Urine Glucose (UA) (Negative) g/dL Urine Ketones (NEGATIVE) Urine Occult Blood (Negative) Urine Nitrate (Negative) Urine Bilirubin (NEGATIVE) Ur Bilirubin Confirm (Negative) Urine Urobilinogen (0.2) E.U./dL Ur Leukocyte Esterase (NEGATIVE) Urine RBC (0-5/HPF) Urine WBC (0-5/HPF) Ur Squamous Epith Cells (0-5/HPF) Ur Transition Epith Cell Ur Renal Epithelial Cell Calcium Oxalate Crystal Uric Acid Crystals Triple Phos Crystals Other Crystals Amorphous Sediment Urine Bacteria Cancelled (None) Hyaline Casts Cancelled Granular Casts Cancelled RBC Casts Cancelled WBC Casts Cancelled Other Casts Cancelled Urine Mucus Cancelled Urine Trichomonas Cancelled Urine Yeast Cancelled Urine Sperm Cancelled Ur Culture Indicated? TNP Cancelled Micro UA Comment Cancelled Salicylates (<20) mg/dL U Opiates 300ng/mL cut Negative (Negative) Ur Oxycodone Screen Negative (Negative) Urine Methadone Screen Negative (Negative) Acetaminophen (10-30) ug/mL Ur Barbiturates Screen Negative (Negative) U Tricyclic Antidepress Negative (Negative) Ur Phencyclidine Scrn Negative (Negative) Ur Amphetamines Screen Negative (Negative) U Methamphetamines Scrn Negative (Negative) Ur MDMA Scrn (Ecstasy) Negative (Negative) U Benzodiazepines Scrn Negative (Negative) Urine Cocaine Screen Negative (Negative) U Marijuana (THC) Screen Positive H (Negative) Ethyl Alcohol ( - 10) mg/dL Urine Dip Bedside Urine Glucose Negative Bedside Urine Bilirubin - Negative Bedside Urine Ketone + 15 Urine Specific [place] 1.015 Bedside Urine Occult Blood - Negative Bedside Urine pH 6.0 Bedside Urine Protein +/- 15 Bedside Urine Urobilinogen - Negative Bedside Urine Nitrite - Negative Bedside Urine Leukocytes +/- 15 Esterase MDM Narrative Medical decision making narrative[place] Accompanied by chief officer. Patient is accepted at [facility] in [place]. He is here for medical clearance. Patient has no SI or HI. He states he is feeling depressed and anxious. He is going through lot of pressure. He has PTSD as well as going through a divorce and he will be retiring in October and has to look for a new job. He does drink alcohol every day. Last alcohol consumption this morning. No seizures or hallucinations. He is had alcohol withdrawals before and is managed very easily states with hydroxyzine. Patient is cooperative in no distress no altered mental status. He has been taking his medications to help for his anxiety and depression. After history and exam CBC CMP drug screen Tylenol aspirin TSH social work consult MDM CC: Depression anxiety alcohol abuse Complicating co-morbidities: PTSD/depression/anxiety/major life changes Data collected from: Patient Medical records reviewed: No recent visit for this complaint Differential considered: Includes but not limited to anxiety depression alcohol abuse Exam documented above, pertinent findings include: Cooperative, slight flat affect Lab Test results independently reviewed as above. Pertinent findings: WBC 4.7 hemoglobin 14.4 sodium 141 potassium 3.1 AST 185 ALT 40 total bilirubin 3.8 alkaline phosphatase 185 aspirin negative Tylenol negative drug screen negative alcohol 0.235 Drug screen positive marijuana Urinalysis negative nitrate negative leukocyte esterase TSH 1.84 Consultations: footwear factory worker, latrell, has been working with [facility] providers for transfer Treatments: Ativan Re-evaluations: Reviewed results with patient. He is cooperative and voluntary, is motivated to go to [facility] Discussion: Appropriate for transfer. Patient is already arranged to go to [facility]. He is voluntary Diagnosis: Anxiety/depression 6:00 p.m. Lui: Sign out to Dr Duarte, patient has been medically cleared but awaiting for provider at [facility] to call back for acceptance. Social work has seen patient here as well [1800] (Gerald) Patient received in sign out from [Lui]. I have reviewed the clinical course and performed an independent history and physical exam. 2000 - per ACADEMIC ADVISING DIRECTOR receiving physician at [facility] had no prior authorization or knowledge of this patient and after discussion with our social services designee it is thought that patient is more appropriate for intensive outpatient treatment Dr villar: Received turned over. Reviewed patient's history and physical. Patient is medically cleared. Has had occasional episodes of tachycardia but no other signs of acute withdrawal. Dr. Duarte discussed the case with [facility] and they recommended outpatient treatment. Patient was seen by social work here in the emergency department. We will [facility] patient to [facility] where they do have the substance abuse rehabilitation program and the administrators of this that he can follow-up with. He was informed of his low platelets need for outpatient follow-up. Discharge Plan Departure Patient Disposition: Home Clinical Impression: Anxiety, Alcohol abuse, Thrombocytopenia Depression Qualifiers: Depression Type: unspecified Qualified Code(s): F32.A - Depression, unspecified Instructions: DI for Alcohol Use Disorder Activity Restrictions/Additional Instructions: I do recommend that you talk with your command and the [facility] and discuss the substance abuse rehabilitation program. No driving for the next 24 hours or in the future if you drink alcohol. There was incidental findings of having low platelets today. You do need follow-up with your medical department with regard to this on an outpatient basis. Return to the emergency department for new symptoms. Stand Alone Forms: Patient Portal/API
[2023-07-07 15:55] LABS: Thyroid Stimulating Hormone 1.84 uIU/mL (0.47-4.68)
[2023-07-07 15:58] LABS: UR Morphine/Opiate cutoff 300 Negative (Negative); Ur Creatinine Normal (Normal); Ur Specific Gravity Normal (Normal); Urine Amphetamines Negative (Negative); Urine Barbiturates Negative (Negative); Urine Benzodiazepines Negative (Negative); Urine Cocaine Negative (Negative); Urine MDMA Negative (Negative); Urine Methadone Negative (Negative); Urine Methamphetamines Negative (Negative); Urine Oxycodone Negative (Negative); Urine Phencyclidine Negative (Negative); Urine Tetrahydrocannabinol Positive (Negative); Urine Tricyclic Antidepressant Negative (Negative); Urine pH Normal (Normal)
[2023-07-07 16:01] LABS: Appearance Urine UA CLEAR; Bilirubin Urine UA 2+ (NEGATIVE); Color Urine UA YELLOW; Glucose Urine UA NEGATIVE (Negative); Ketones Urine UA 1+ (NEGATIVE); Leukocyte Esterase Urine UA NEGATIVE (NEGATIVE); Nitrite Urine UA NEGATIVE (Negative); Occult Blood Urine UA NEGATIVE (Negative); Protein Urine UA 1+ (Negative)
[2023-07-07 16:25] LABS: Bacteria Urine Occasional (0-1); RBC Urine 1-5/HPF (0-5/HPF); Squamous Epithelial Cell Urine 1-5 /HPF (0-5/HPF); WBC Urine 1-5/HPF (0-5/HPF)
[2023-07-07 16:27] LABS: Ictotest Urine Positive (Negative)
--- NOTE | 2023-07-07 16:38 | CM.SWNOTE ---
Addendum entered by Padilla Adame 07/07/23 18:38: SW received return call from provider at [facility] Dr. Cuevas. He declines to accept this patient because he is not suicidal. He notes perhaps pt would be a better fit for intensive OP services or residential IP alcohol treatment. When pt arrived to the ED today he and command pharmacy sales representative had indicated that there had already been communication with [facility] and they were expecting this patient to be admitted. Dr. Carrion denies having any awareness of this patient or that there was any prior authorization granted for this patient. As it is beyond the end of this writers' shift care pt to remain in the ED awaiting SW arrival tomorrow 07/08 at 11:30 to determine final disposition plan. Padilla Adame, TEOFIOL, [facility] Original Note: REMOTE SENSING TECHNOLOGIST - Mine Laborer Assessment REMOTE SENSING TECHNOLOGIST - Mine Laborer Assessment Start: 07/07/23 16:20 Freq: Status: Active Protocol: Document 07/07/23 16:20 VR (Rec: 07/07/23 16:38 VR [id number]) REMOTE SENSING TECHNOLOGIST/Mine Laborer Assessment Time Spent with Patient Start date 07/07/23 Visit Start Time 16:00 End date 07/07/23 Visit End Time 16:20 Total time Care Management spent on 20 patient visit-in minutes Mental Health Screening Include Onset, Duration, Intensity Presenting Problem Pt is a 42yo male who is seen in the ED for increased alcohol use, depression, and PTSD symptoms. he is accompanied by command pharmacy sales representative Fernando Johnson. Pt reports that he has had increased alcohol intake of up to 1/5 of vodka a day for the past three weeks. 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 Pt reports increasing nightmares and anxiety. he has been sleeping only 2-3 hours a night when baseline is 6. he has been eating only one meal a day, baseline is 3-4, and estimates he has lost 18 pounds in the past three weeks . Precipitating Event(s) Pt identifies June as a difficult time as above. He also has been going through a divorce for the past year. Patient Strengths Pt actively seeking help. Identifies his mother and girlfriend, Lisa, as supports. Current Behavioral Health Provider(s) None. Pt reports he had been Include Facility, Provider, Ph. [place] [facility] [place] [facility] but he had his last session roughly two months ago. Psych. Hx Mental Health and Chemical Pt has no hx of IP psychiatric Dependency admissions. Pt reports hx of PTSD, Anxiety, and Depression. He has a hx of suicidal thoughts, no past self harm bx and no hx of attempts. He reports he recently self- discontinued his medications after they start working for a month or month and a half i feel worse. Pt notes goal of getting off all medications. Family Hx of Behavioral Abuse Unknown Psychiatric Hospitalizations (date(s)/ None location) Psychosocial information & Support Pt was b/r in [place]. Mom lives in [facility] and is a good support. he is going through a divorce with of 12 years. no prior marriages. he lives on [facility]. girlfriend, Lisa, lives in [place]. Pt has [employer] insurance coverage. School/Work Pt is in the [employer]) and due to retire in a few months. Rank E7. Substance Abuse Screening Include Onset, Duration, Intensity Presenting Problem Pt identifies periodic heavy alcohol consumption since 2008 . He has one prior IP stay in [facility] in 2020, he reports this was not a positive experience. He has been drinking upwards of 1/5 of vodka daily for the past three weeks. He does not currently have any OP ANDREA providers. Precipitating Event(s) Pt reports in the moment the alcohol is the only thing that seems to work but big picture it just makes the depression worse. Patient Strengths desire to cease alcohol use. Current Behavioral Health Provider(s) No current. Include Facility, Provider, Ph. # Family Hx of Behavioral Abuse Unknown Rehab Facilities? ((Date(s), Location(s) IP stay in [place] in 2020. ) Legal Concerns Legal Matters - Outstanding Issues Pt denies. Mental Status Orientation (Person/Place/Time) Pt confirmed his name and date of . Pt is A&Ox4. Stated Mood not great Affect (Congruent with Mood?) Congruent Thought Content - Specify/Describe unremarkable Obsessions, Delusions, Hallucinations Thought Processes (Lybxynm-Zjuskyth-Gwmh logical, linear, goal oriented Qkyutglu-Fvbyhqdw-Dlqxecowpq- Iqiyylavbcsbfx-Aomuwdj-Nclflfjiripu- Thought Blocking) Speech (Drkjyb-Hamb-Lebiuym-Rapid-Soft- WNL Loud-Pressured) Motor (Vsvsrx-Xpgkcyvie-Cfxj-Other) WNL Insight (Zoie-Zzeg-Lwsg/Limited) Fair Judgement (Vack-Zinb-Pbnw/Limited) Fair Impulse Control (Adequate-Impaired) Good Memory (Yzoqgbwje-Mtdsqa-Kkpqlu, Good Impaired-Intact) Concentration (Intact-Impaired) intact Attention (Intact-Impaired) intact Behavior (Appropriate-Inappropriate) appropriate Risk Assessment Suicidal Ideation (Plan) No Homicidal Ideation (Plan) No Intervention Intervention SW met with Pt at bedside in room 13. command pharmacy sales representative Alex remained at bedside per patients preference. Pt detailed increasing alcohol use coupled with increased depression and PTSD symptoms in the past three weeks. He endorses markedly poor sleep and PO intake in that time period. he estimates he has lost 18 pounds in the past three weeks. Pt reports he stopped taking his psychiatric medications three days ago. he acknowledges that alcohol use exacerbates his symptoms of depression. he identifies trigger of intrusive memories of a past deployment that occurred in June. Pt details goals of ceasing alcohol use, stabilization of his mental health symptoms, and getting off medications. Pt and command pharmacy sales representative arrive to the ED requesting medical clearance for transfer to [facility]. Pt is assessed to be a good candidate for dual treatment for his substance use and mental health concerns, and is agreeable to same. Plan RA Plan Pt referred for voluntary transfer to [facility]. Referral placed with transfer center staff, Chris. Padilla Adame, REMOTE SENSING TECHNOLOGIST, WARE FINISHER
--- NOTE | 2023-07-07 16:51 | PC.NURSE ---
Pt reports that he went away to inpatient ETOH tx in [place]. Upon his return his took everything out of their home, left and filed for divorce. Pt states that he abuses ETOH because he experiences PTSD due to previous deployment in [place] where he saw and did things that no person should ever have to deal with. Pt states that he wants help with coping with the significant emotional stress in his life and that he wants to be free from ETOH dependency. Pt affect is tearful and he states that he is feeling very alone after his left him. [facility] and understands the transfer process.
--- NOTE | 2023-07-07 19:33 | PC.NURSE ---
pt states his last drink was at 0900 07/06/2023
[2023-07-08] VITALS (27 sets, daily range): BP systolic 124–158; BP diastolic 69–83; PULSE 95–126; RESP 11–25; O2SAT 91–99
[2023-07-08] MEDS: PHENobarbital 65 MG/ML VIAL 260 MG IV ×2 (01:03→06:54)
[2023-07-08] MEDS: NICOTINE 21 MG PATCH TOP (02:05)
--- NOTE | 2023-07-08 09:38 | PC.NURSE ---
Patient is in room and reporting no pain, agitation, or anxiety. He was smiling and agreeable to me being in the room with him. He had water at bedside and did not have any requests at this time. His call light was in reach and was instructed to use it for any needs, questions, or concerns.
--- NOTE | 2023-07-08 12:14 | CM.SWNOTE ---
ED SALES EXPERT Note SALES EXPERT enters room to meet with patient. SALES EXPERT asks patient about how he would like to proceed regarding his plan of care. Patient states he is feeling better, patient states he plans to reach out to [facility]. Patient endorses he has already utilized [facility] (substance abuse rehabilitation program) through the [facility]. Patient endorses he has a ride upon d/c. Patient denies SI, patient states he has experienced SI in the past. Patient endorses he has good supports. SALES EXPERT reviews this with ED provider, ED provider clears patient for d/c. ALESSANDRA Tipton
== END 2023-07-08 11:52 | disposition home or self-care (01) ==
PROVIDERS: Emergency Medicine; Emergency Provider Emergency Medicine
DX: F41.9 Anxiety disorder, unspecified (principal); F32.A Depression, unspecified; F10.129 Alcohol abuse with intoxication, unspecified; Y90.7 Blood alcohol level of 200-239 mg/100 ml; D69.6 Thrombocytopenia, unspecified
CPT/HCPCS: 36415; 80053; 80305; 80320; 80329; 81001; 81003; 84439; 84443; 85025; 87086; 96374; 96376; 99284; G0480; J2560

== ENCOUNTER 2023-07-09 04:07 | Emergency (ER) | payer OTHER, SELFPAY ==
[2023-07-09] VITALS (20 sets, daily range): BP systolic 113–152; BP diastolic 57–84; PULSE 85–128; RESP 9–28; TEMP 36.5; O2SAT 93–98; BMI 27.2
--- NOTE | 2023-07-09 04:10 | ED.GENADULT ---
HPI - General Adult <Charly Duarte - Last Filed: 07/13/23 01:32> General Chief complaint: Psychiatric Symptoms Stated complaint: SI Time Seen by Provider: 07/09/23 04:10 History of Present Illness HPI narrative: 42-year-old male nonsmoker with extensive alcohol history presents by EMS for evaluation of suicidal and homicidal ideations. He states his last drink was about 4 hours ago he denies any withdrawal type symptoms such as tremors, nausea or vomiting. He was sent here yesterday by [place] due to his request for hospitalization for help with alcohol but after their evaluation by our emergency department including involvement with social work and discussion with intake provider at [facility] he did not meet criteria as he was not gravely disabled, suicidal or homicidal. He was subsequently discharged home and presents tonight under these circumstances. In the big picture he has been having significant increased difficulty lately due to an ongoing divorce. He states his plan is to use a kitchen knife. Related Data Allergies Allergy/AdvReac Type Severity Reaction Status Date / Time anthrax vaccine Allergy Intermediate Rash Verified 07/07/23 14:47 Influenza Virus Vaccines Allergy Intermediate Rash Verified 07/07/23 14:47 alprazolam [From Xanax] AdvReac Intermediate Drowsy Verified 07/07/23 14:47 yellow fever vaccine live AdvReac Intermediate Rash Verified 07/07/23 14:47 zolpidem [From Ambien] AdvReac Intermediate Hallucinati Verified 07/07/23 14:47 ng Review of Systems <Charly LariosDO eulogio - Last Filed: 07/13/23 01:32> Review of Systems Narrative: GENERAL: Denies chills, fatigue, malaise, fever, sweats. HEENT: Denies sinus pain, ear pain, sore throat, difficulty swallowing, dizziness. RESPIRATORY: Denies dyspnea, cough, wheezing, hemoptysis, sputum. CARDIOVASCULAR: Denies chest pain, palpitations, orthopnea, edema, GASTROINTESTINAL: Denies nausea, vomiting, abdominal pain, diarrhea, constipation, melena. : Denies dysuria, frequency, incontinence, hematuria, urinary retention. MUSCULOSKELETAL: denies weakness, joint pain, or bony pain SKIN: Denies rash, skin lesions, or other NEUROLOGIC: Denies weakness, headache, numbness, change in speech, confusion, seizures, incoordination. PSYCHIATRIC: see HPI. 12 point review of systems is negative except for those stated above Patient History <Charly Duarte, DO - Last Filed: 07/13/23 01:32> tobacco type: vaping alcohol intake frequency: 3 or more drinks per day Exam <Charly Duarte, - Last Filed: 07/13/23 01:32> Narrative Exam Narrative: GENERAL: [42] year old patient appears stated age. Well-developed patient, in mild distress. laughing and joking, stating he is back and now he wants to kill himself and hurt other people HEAD: Atraumatic. Normocephalic. EYES: Pupils equal round and reactive. Extraocular motions intact. No scleral icterus. No injection or drainage. ENT: Nose without bleeding, purulent drainage. Throat without erythema, tonsillar hypertrophy or exudate. Airway patent. NECK: Trachea midline. Non tender CARDIOVASCULAR: Regular rate and rhythm without murmurs, gallops, or rubs. RESPIRATORY: Clear to auscultation. Breath sounds equal bilaterally. No wheezes, rales, or rhonchi. GASTROINTESTINAL: Abdomen soft, non-tender, nondistended. EXTREMITIES: No edema or joint tenderness. BACK: Nontender without deformity or crepitance. No flank tenderness. NEURO: AOx3. SKIN: No rash or erythema of visible areas Initial Vital Signs Initial Vital Signs: Vital Signs Temperature 97.7 F 07/09/23 04:13 Pulse Rate 93 H 07/09/23 04:13 Respiratory Rate 18 07/09/23 04:13 Blood Pressure 132/83 07/09/23 04:13 Pulse Oximetry 95 07/09/23 04:13 Oxygen Delivery Method Room Air 07/09/23 04:13 <Brooke Smalls, DO - Last Filed: 07/09/23 18:30> Initial Vital Signs Initial Vital Signs: Vital Signs Temperature 97.7 F 07/09/23 04:13 Pulse Rate 93 H 07/09/23 04:13 Respiratory Rate 18 07/09/23 04:13 Blood Pressure 132/83 07/09/23 04:13 Pulse Oximetry 95 07/09/23 04:13 Oxygen Delivery Method Room Air 07/09/23 04:13 Course <Chalry Duarte, - Last Filed: 07/13/23 01:32> Orders Ordered: Discontinued Medications Sodium Chloride (Normal Saline 0.9%) 1,000 mls @ 1,000 mls/hr IV BOLUS ONE Stop: 07/09/23 15:19 Last Infusion: 07/09/23 15:35 Dose: Infused Documented By: Admin: 07/09/23 14:30 Dose: 1,000 mls/hr Documented By: LEX Octreotide Acetate 500 mcg/ (Sodium Chloride) 101 mls @ 10.1 mls/hr IV CONT CATHI; Protocol Last Infusion: 07/09/23 18:35 Dose: Infused Documented By: Admin: 07/09/23 15:21 Dose: 50 mcg/hr, 10.1 mls/hr Documented By: LEX Sodium Chloride (Normal Saline 0.9%) 1,000 mls @ 150 mls/hr IV CONT CATHI Last Infusion: 07/09/23 18:35 Dose: Infused Documented By: Admin: 07/09/23 16:13 Dose: 150 mls/hr Documented By: LEX Lorazepam (Lorazepam 0.5 Mg Tablet) 2 mg PO NOW ONE Stop: 07/09/23 13:25 Last Admin: 07/09/23 13:54 Dose: 2 mg Documented By: LEX Octreotide Acetate (Octreotide 100 Mcg/Ml Vial) 50 mcg IV NOW ONE Stop: 07/09/23 14:51 Last Admin: 07/09/23 15:21 Dose: 50 mcg Documented By: LEX Ondansetron HCl (Ondansetron 4 Mg/2 Ml Inj) 4 mg IV NOW ONE Stop: 07/09/23 13:31 Last Admin: 07/09/23 13:54 Dose: 4 mg Documented By: LEX Pantoprazole Sodium (Pantoprazole 40 Mg Vial) 80 mg IV NOW ONE Stop: 07/09/23 13:31 Last Admin: 07/09/23 13:54 Dose: 80 mg Documented By: LEX Vital Signs Vital signs: Vital Signs - 8 hr 07/09/23 14:03 07/09/23 14:25 07/09/23 14:31 Pulse Rate 111 H 104 H 106 H Respiratory Rate Blood Pressure 152/81 H 136/73 135/73 Pulse Oximetry 95 97 95 Oxygen Delivery Method Room Air Room Air Room Air 07/09/23 14:46 07/09/23 14:47 07/09/23 14:47 Pulse Rate 106 H 104 H Respiratory Rate 23 19 Blood Pressure 141/78 H Pulse Oximetry 97 97 Oxygen Delivery Method 07/09/23 14:53 07/09/23 15:00 07/09/23 15:00 Pulse Rate 99 H 103 H Respiratory Rate 12 16 Blood Pressure 141/78 H 140/78 Pulse Oximetry 97 95 Oxygen Delivery Method Room Air 07/09/23 15:30 07/09/23 15:30 07/09/23 16:00 Pulse Rate 85 Respiratory Rate 14 Blood Pressure 142/84 H 140/80 Pulse Oximetry 95 Oxygen Delivery Method 07/09/23 16:00 07/09/23 16:30 07/09/23 16:30 Pulse Rate 98 H 111 H Respiratory Rate 9 L 19 Blood Pressure 131/77 Pulse Oximetry 96 96 Oxygen Delivery Method 07/09/23 16:56 07/09/23 16:56 07/09/23 17:00 Pulse Rate 102 H Respiratory Rate 12 Blood Pressure 133/74 134/74 Pulse Oximetry 95 Oxygen Delivery Method 07/09/23 17:00 07/09/23 17:30 07/09/23 17:30 Pulse Rate 104 H 110 H Respiratory Rate 9 L 23 Blood Pressure 135/73 Pulse Oximetry 95 93 Oxygen Delivery Method 07/09/23 18:00 07/09/23 18:01 07/09/23 18:01 Pulse Rate 111 H 110 H Respiratory Rate 28 H 23 Blood Pressure 128/63 Pulse Oximetry 95 96 Oxygen Delivery Method <Brooke Smalls, DO - Last Filed: 07/09/23 18:30> Orders Ordered: Discontinued Medications Sodium Chloride (Normal Saline 0.9%) 1,000 mls @ 1,000 mls/hr IV BOLUS ONE Stop: 07/09/23 15:19 Last Infusion: 07/09/23 15:35 Dose: Infused Documented By: Admin: 07/09/23 14:30 Dose: 1,000 mls/hr Documented By: LEX Octreotide Acetate 500 mcg/ (Sodium Chloride) 101 mls @ 10.1 mls/hr IV CONT CATHI; Protocol Last Infusion: 07/09/23 18:35 Dose: Infused Documented By: Admin: 07/09/23 15:21 Dose: 50 mcg/hr, 10.1 mls/hr Documented By: LEX Sodium Chloride (Normal Saline 0.9%) 1,000 mls @ 150 mls/hr IV CONT CATHI Last Infusion: 07/09/23 18:35 Dose: Infused Documented By: Admin: 07/09/23 16:13 Dose: 150 mls/hr Documented By: LEX Lorazepam (Lorazepam 0.5 Mg Tablet) 2 mg PO NOW ONE Stop: 07/09/23 13:25 Last Admin: 07/09/23 13:54 Dose: 2 mg Documented By: LEX Octreotide Acetate (Octreotide 100 Mcg/Ml Vial) 50 mcg IV NOW ONE Stop: 07/09/23 14:51 Last Admin: 07/09/23 15:21 Dose: 50 mcg Documented By: LEX Ondansetron HCl (Ondansetron 4 Mg/2 Ml Inj) 4 mg IV NOW ONE Stop: 07/09/23 13:31 Last Admin: 07/09/23 13:54 Dose: 4 mg Documented By: LEX Pantoprazole Sodium (Pantoprazole 40 Mg Vial) 80 mg IV NOW ONE Stop: 07/09/23 13:31 Last Admin: 07/09/23 13:54 Dose: 80 mg Documented By: LEX Vital Signs Vital signs: Vital Signs - 8 hr 07/09/23 14:03 07/09/23 14:25 07/09/23 14:31 Pulse Rate 111 H 104 H 106 H Respiratory Rate Blood Pressure 152/81 H 136/73 135/73 Pulse Oximetry 95 97 95 Oxygen Delivery Method Room Air Room Air Room Air 07/09/23 14:46 07/09/23 14:47 07/09/23 14:47 Pulse Rate 106 H 104 H Respiratory Rate 23 19 Blood Pressure 141/78 H Pulse Oximetry 97 97 Oxygen Delivery Method 07/09/23 14:53 07/09/23 15:00 07/09/23 15:00 Pulse Rate 99 H 103 H Respiratory Rate 12 16 Blood Pressure 141/78 H 140/78 Pulse Oximetry 97 95 Oxygen Delivery Method Room Air 07/09/23 15:30 07/09/23 15:30 07/09/23 16:00 Pulse Rate 85 Respiratory Rate 14 Blood Pressure 142/84 H 140/80 Pulse Oximetry 95 Oxygen Delivery Method 07/09/23 16:00 07/09/23 16:30 07/09/23 16:30 Pulse Rate 98 H 111 H Respiratory Rate 9 L 19 Blood Pressure 131/77 Pulse Oximetry 96 96 Oxygen Delivery Method 07/09/23 16:56 07/09/23 16:56 07/09/23 17:00 Pulse Rate 102 H Respiratory Rate 12 Blood Pressure 133/74 134/74 Pulse Oximetry 95 Oxygen Delivery Method 07/09/23 17:00 07/09/23 17:30 07/09/23 17:30 Pulse Rate 104 H 110 H Respiratory Rate 9 L 23 Blood Pressure 135/73 Pulse Oximetry 95 93 Oxygen Delivery Method 07/09/23 18:00 07/09/23 18:01 07/09/23 18:01 Pulse Rate 111 H 110 H Respiratory Rate 28 H 23 Blood Pressure 128/63 Pulse Oximetry 95 96 Oxygen Delivery Method Medical Decision Making <Charly Duarte, DO - Last Filed: 07/13/23 01:32> Lab Data 07/09/23 13:39 07/09/23 04:30 Labs: Lab Results 07/09/23 07/09/23 07/09/23 Range/Units 04:30 07:24 11:07 WBC 3.9 L (4.5-11.0) X10^3/uL RBC 4.46 L (4.5-5.9) X10^6/uL Hgb 14.4 (13.5-17.5) g/dL Hct 40.9 L (41-53) % MCV 91.7 (80-100) fL MCH 32.2 (26-34) PG MCHC 35.1 (30-36) % RDW 21.4 H (11.6-14.8) % Plt Count 41 L (150-400) X10^3/uL Neut % (Auto) 54.4 (50-75) % Lymph % (Auto) 30.8 (25-40) % [place] % (Auto) 9.7 (3-14) % Eos % (Auto) 4.5 H (2-4) % Baso % (Auto) 0.6 (0-2) % Neut # (Auto) 2100 (3813-8964) /uL Lymph # (Auto) 1200 (5764-7721) /uL [place] # (Auto) 400 (0-900) /uL Eos # (Auto) 200 (0-450) /uL Baso # (Auto) 0 (0-100) /uL Platelet Estimate Decreased on smear RBC Morphology See below Anisocytosis 3+ H PT (10.1-12.7) SECONDS INR (0.9-1.3) APTT (26-36) SECONDS Sodium 144 (137-145) mmol/L Potassium 3.4 (3.4-5.1) mmol/L Chloride 107 (98-107) mmol/L Carbon Dioxide 23 (22-32) mmol/L BUN < 2 L (9-20) mg/dL Creatinine 0.65 L (0.66-1.25) mg/dL Estimated GFR > 60 (>60) mL/min BUN/Creatinine Ratio 3.1 L (6-22) Glucose 99 (70-100) mg/dL Lactate (0.7-2.1) mmol/L Calcium 8.1 L (8.4-10.2) mg/dL Total Bilirubin 7.0 H (0.2-1.3) mg/dL AST 215 H (17-59) IU/L ALT 42 (<50) IU/L Alkaline Phosphatase 163 H (38-126) U/L Total Protein 7.6 (6.3-8.2) g/dL Albumin 3.7 (3.5-5.0) g/dL Globulin 3.9 (1.7-4.1) g/dL Albumin/Globulin Ratio 0.9 L (1.0-2.8) Ur Bilirubin Confirm (Negative) Urine RBC (0-5/HPF) Urine WBC (0-5/HPF) Ur Squamous Epith Cells (0-5/HPF) Urine Bacteria (None) Urine Mucus (Negative) Ur Culture Indicated? Salicylates < 1.0 (<20) mg/dL U Opiates 300ng/mL cut Negative (Negative) Ur Oxycodone Screen Negative (Negative) Urine Methadone Screen Negative (Negative) Acetaminophen < 10 (10-30) ug/mL Ur Barbiturates Screen Positive H (Negative) U Tricyclic Antidepress Negative (Negative) Ur Phencyclidine Scrn Negative (Negative) Ur Amphetamines Screen Negative (Negative) U Methamphetamines Scrn Negative (Negative) Ur MDMA Scrn (Ecstasy) Negative (Negative) U Benzodiazepines Scrn Negative (Negative) Urine Cocaine Screen Negative (Negative) U Marijuana (THC) Screen Positive H (Negative) Ethyl Alcohol 287 H 233 H ( - 10) mg/dL 07/09/23 07/09/23 07/09/23 Range/Units 11:52 12:24 13:39 WBC (4.5-11.0) X10^3/uL RBC (4.5-5.9) X10^6/uL Hgb 14.2 (13.5-17.5) g/dL Hct 41.7 (41-53) % MCV (80-100) fL MCH (26-34) PG MCHC (30-36) % RDW (11.6-14.8) % Plt Count (150-400) X10^3/uL Neut % (Auto) (50-75) % Lymph % (Auto) (25-40) % [place] % (Auto) (3-14) % Eos % (Auto) (2-4) % Baso % (Auto) (0-2) % Neut # (Auto) (0316-0964) /uL Lymph # (Auto) (5623-1931) /uL [place] # (Auto) (0-900) /uL Eos # (Auto) (0-450) /uL Baso # (Auto) (0-100) /uL Platelet Estimate RBC Morphology Anisocytosis PT (10.1-12.7) SECONDS INR (0.9-1.3) APTT (26-36) SECONDS Sodium (137-145) mmol/L Potassium (3.4-5.1) mmol/L Chloride (98-107) mmol/L Carbon Dioxide (22-32) mmol/L BUN (9-20) mg/dL Creatinine (0.66-1.25) mg/dL Estimated GFR (>60) mL/min BUN/Creatinine Ratio (6-22) Glucose (70-100) mg/dL Lactate 4.4 H* (0.7-2.1) mmol/L Calcium (8.4-10.2) mg/dL Total Bilirubin (0.2-1.3) mg/dL AST (17-59) IU/L ALT (<50) IU/L Alkaline Phosphatase (38-126) U/L Total Protein (6.3-8.2) g/dL Albumin (3.5-5.0) g/dL Globulin (1.7-4.1) g/dL Albumin/Globulin Ratio (1.0-2.8) Ur Bilirubin Confirm Positive H (Negative) Urine RBC 1-5/hpf (0-5/HPF) Urine WBC None seen (0-5/HPF) Ur Squamous Epith Cells 0-1 /hpf (0-5/HPF) Urine Bacteria Moderate (10-30) H (None) Urine Mucus 4+ H (Negative) Ur Culture Indicated? Specimen cultured Salicylates (<20) mg/dL U Opiates 300ng/mL cut (Negative) Ur Oxycodone Screen (Negative) Urine Methadone Screen (Negative) Acetaminophen (10-30) ug/mL Ur Barbiturates Screen (Negative) U Tricyclic Antidepress (Negative) Ur Phencyclidine Scrn (Negative) Ur Amphetamines Screen (Negative) U Methamphetamines Scrn (Negative) Ur MDMA Scrn (Ecstasy) (Negative) U Benzodiazepines Scrn (Negative) Urine Cocaine Screen (Negative) U Marijuana (THC) Screen (Negative) Ethyl Alcohol 159 H ( - 10) mg/dL 07/09/23 Range/Units 15:26 WBC (4.5-11.0) X10^3/uL RBC (4.5-5.9) X10^6/uL Hgb (13.5-17.5) g/dL Hct (41-53) % MCV (80-100) fL MCH (26-34) PG MCHC (30-36) % RDW (11.6-14.8) % Plt Count (150-400) X10^3/uL Neut % (Auto) (50-75) % Lymph % (Auto) (25-40) % [place] % (Auto) (3-14) % Eos % (Auto) (2-4) % Baso % (Auto) (0-2) % Neut # (Auto) (6085-2083) /uL Lymph # (Auto) (3788-0858) /uL [place] # (Auto) (0-900) /uL Eos # (Auto) (0-450) /uL Baso # (Auto) (0-100) /uL Platelet Estimate RBC Morphology Anisocytosis PT 18.8 H (10.1-12.7) SECONDS INR 1.6 H (0.9-1.3) APTT 36 (26-36) SECONDS Sodium (137-145) mmol/L Potassium (3.4-5.1) mmol/L Chloride (98-107) mmol/L Carbon Dioxide (22-32) mmol/L BUN (9-20) mg/dL Creatinine (0.66-1.25) mg/dL Estimated GFR (>60) mL/min BUN/Creatinine Ratio (6-22) Glucose (70-100) mg/dL Lactate 3.1 H (0.7-2.1) mmol/L Calcium (8.4-10.2) mg/dL Total Bilirubin (0.2-1.3) mg/dL AST (17-59) IU/L ALT (<50) IU/L Alkaline Phosphatase (38-126) U/L Total Protein (6.3-8.2) g/dL Albumin (3.5-5.0) g/dL Globulin (1.7-4.1) g/dL Albumin/Globulin Ratio (1.0-2.8) Ur Bilirubin Confirm (Negative) Urine RBC (0-5/HPF) Urine WBC (0-5/HPF) Ur Squamous Epith Cells (0-5/HPF) Urine Bacteria (None) Urine Mucus (Negative) Ur Culture Indicated? Salicylates (<20) mg/dL U Opiates 300ng/mL cut (Negative) Ur Oxycodone Screen (Negative) Urine Methadone Screen (Negative) Acetaminophen (10-30) ug/mL Ur Barbiturates Screen (Negative) U Tricyclic Antidepress (Negative) Ur Phencyclidine Scrn (Negative) Ur Amphetamines Screen (Negative) U Methamphetamines Scrn (Negative) Ur MDMA Scrn (Ecstasy) (Negative) U Benzodiazepines Scrn (Negative) Urine Cocaine Screen (Negative) U Marijuana (THC) Screen (Negative) Ethyl Alcohol ( - 10) mg/dL Urine Dip Bedside Urine Glucose Negative Bedside Urine Bilirubin + 1 Bedside Urine Ketone +/- 5 Urine Specific [place] 1.020 Bedside Urine Occult Blood - Negative Bedside Urine pH 6.0 Bedside Urine Protein +/- 15 Bedside Urine Urobilinogen 1+ 2mg Bedside Urine Nitrite - Negative Bedside Urine Leukocytes +/- 15 Esterase Point of care testing: Urine Dip Bedside Urine Glucose Negative Bedside Urine Bilirubin + 1 Bedside Urine Ketone +/- 5 Urine Specific [place] 1.020 Bedside Urine Occult Blood - Negative Bedside Urine pH 6.0 Bedside Urine Protein +/- 15 Bedside Urine Urobilinogen 1+ 2mg Bedside Urine Nitrite - Negative Bedside Urine Leukocytes +/- 15 Esterase MDM Narrative Medical decision making narrative: [42] year old patient presents with suicidal ideation Prior Charts reviewed in our EMR Primary Historian: patient Labs reviewed and interpreted by myself:etoh 287 Consultations: Chris patient returns for the 2nd time in his many days now complaining of suicidal and homicidal ideations, he is currently intoxicated but stating he wants to kill himself with a kitchen knife and states that he is afraid he will harm our staff. <Brooke Smalls, DO - Last Filed: 07/09/23 18:30> Lab Data Labs: Lab Results 07/09/23 07/09/23 07/09/23 Range/Units 04:30 07:24 11:07 WBC 3.9 L (4.5-11.0) X10^3/uL RBC 4.46 L (4.5-5.9) X10^6/uL Hgb 14.4 (13.5-17.5) g/dL Hct 40.9 L (41-53) % MCV 91.7 (80-100) fL MCH 32.2 (26-34) PG MCHC 35.1 (30-36) % RDW 21.4 H (11.6-14.8) % Plt Count 41 L (150-400) X10^3/uL Neut % (Auto) 54.4 (50-75) % Lymph % (Auto) 30.8 (25-40) % [place] % (Auto) 9.7 (3-14) % Eos % (Auto) 4.5 H (2-4) % Baso % (Auto) 0.6 (0-2) % Neut # (Auto) 2100 (8239-2271) /uL Lymph # (Auto) 1200 (9740-1348) /uL [place] # (Auto) 400 (0-900) /uL Eos # (Auto) 200 (0-450) /uL Baso # (Auto) 0 (0-100) /uL Platelet Estimate Decreased on smear RBC Morphology See below Anisocytosis 3+ H PT (10.1-12.7) SECONDS INR (0.9-1.3) APTT (26-36) SECONDS Sodium 144 (137-145) mmol/L Potassium 3.4 (3.4-5.1) mmol/L Chloride 107 (98-107) mmol/L Carbon Dioxide 23 (22-32) mmol/L BUN < 2 L (9-20) mg/dL Creatinine 0.65 L (0.66-1.25) mg/dL Estimated GFR > 60 (>60) mL/min BUN/Creatinine Ratio 3.1 L (6-22) Glucose 99 (70-100) mg/dL Lactate (0.7-2.1) mmol/L Calcium 8.1 L (8.4-10.2) mg/dL Total Bilirubin 7.0 H (0.2-1.3) mg/dL AST 215 H (17-59) IU/L ALT 42 (<50) IU/L Alkaline Phosphatase 163 H (38-126) U/L Total Protein 7.6 (6.3-8.2) g/dL Albumin 3.7 (3.5-5.0) g/dL Globulin 3.9 (1.7-4.1) g/dL Albumin/Globulin Ratio 0.9 L (1.0-2.8) Ur Bilirubin Confirm (Negative) Urine RBC (0-5/HPF) Urine WBC (0-5/HPF) Ur Squamous Epith Cells (0-5/HPF) Urine Bacteria (None) Urine Mucus (Negative) Ur Culture Indicated? Salicylates < 1.0 (<20) mg/dL U Opiates 300ng/mL cut Negative (Negative) Ur Oxycodone Screen Negative (Negative) Urine Methadone Screen Negative (Negative) Acetaminophen < 10 (10-30) ug/mL Ur Barbiturates Screen Positive H (Negative) U Tricyclic Antidepress Negative (Negative) Ur Phencyclidine Scrn Negative (Negative) Ur Amphetamines Screen Negative (Negative) U Methamphetamines Scrn Negative (Negative) Ur MDMA Scrn (Ecstasy) Negative (Negative) U Benzodiazepines Scrn Negative (Negative) Urine Cocaine Screen Negative (Negative) U Marijuana (THC) Screen Positive H (Negative) Ethyl Alcohol 287 H 233 H ( - 10) mg/dL 07/09/23 07/09/23 07/09/23 Range/Units 11:52 12:24 13:39 WBC (4.5-11.0) X10^3/uL RBC (4.5-5.9) X10^6/uL Hgb 14.2 (13.5-17.5) g/dL Hct 41.7 (41-53) % MCV (80-100) fL MCH (26-34) PG MCHC (30-36) % RDW (11.6-14.8) % Plt Count (150-400) X10^3/uL Neut % (Auto) (50-75) % Lymph % (Auto) (25-40) % [place] % (Auto) (3-14) % Eos % (Auto) (2-4) % Baso % (Auto) (0-2) % Neut # (Auto) (3405-6665) /uL Lymph # (Auto) (0958-3477) /uL [place] # (Auto) (0-900) /uL Eos # (Auto) (0-450) /uL Baso # (Auto) (0-100) /uL Platelet Estimate RBC Morphology Anisocytosis PT (10.1-12.7) SECONDS INR (0.9-1.3) APTT (26-36) SECONDS Sodium (137-145) mmol/L Potassium (3.4-5.1) mmol/L Chloride (98-107) mmol/L Carbon Dioxide (22-32) mmol/L BUN (9-20) mg/dL Creatinine (0.66-1.25) mg/dL Estimated GFR (>60) mL/min BUN/Creatinine Ratio (6-22) Glucose (70-100) mg/dL Lactate 4.4 H* (0.7-2.1) mmol/L Calcium (8.4-10.2) mg/dL Total Bilirubin (0.2-1.3) mg/dL AST (17-59) IU/L ALT (<50) IU/L Alkaline Phosphatase (38-126) U/L Total Protein (6.3-8.2) g/dL Albumin (3.5-5.0) g/dL Globulin (1.7-4.1) g/dL Albumin/Globulin Ratio (1.0-2.8) Ur Bilirubin Confirm Positive H (Negative) Urine RBC 1-5/hpf (0-5/HPF) Urine WBC None seen (0-5/HPF) Ur Squamous Epith Cells 0-1 /hpf (0-5/HPF) Urine Bacteria Moderate (10-30) H (None) Urine Mucus 4+ H (Negative) Ur Culture Indicated? Specimen cultured Salicylates (<20) mg/dL U Opiates 300ng/mL cut (Negative) Ur Oxycodone Screen (Negative) Urine Methadone Screen (Negative) Acetaminophen (10-30) ug/mL Ur Barbiturates Screen (Negative) U Tricyclic Antidepress (Negative) Ur Phencyclidine Scrn (Negative) Ur Amphetamines Screen (Negative) U Methamphetamines Scrn (Negative) Ur MDMA Scrn (Ecstasy) (Negative) U Benzodiazepines Scrn (Negative) Urine Cocaine Screen (Negative) U Marijuana (THC) Screen (Negative) Ethyl Alcohol 159 H ( - 10) mg/dL 07/09/23 Range/Units 15:26 WBC (4.5-11.0) X10^3/uL RBC (4.5-5.9) X10^6/uL Hgb (13.5-17.5) g/dL Hct (41-53) % MCV (80-100) fL MCH (26-34) PG MCHC (30-36) % RDW (11.6-14.8) % Plt Count (150-400) X10^3/uL Neut % (Auto) (50-75) % Lymph % (Auto) (25-40) % [place] % (Auto) (3-14) % Eos % (Auto) (2-4) % Baso % (Auto) (0-2) % Neut # (Auto) (7649-6151) /uL Lymph # (Auto) (1298-5177) /uL [place] # (Auto) (0-900) /uL Eos # (Auto) (0-450) /uL Baso # (Auto) (0-100) /uL Platelet Estimate RBC Morphology Anisocytosis PT 18.8 H (10.1-12.7) SECONDS INR 1.6 H (0.9-1.3) APTT 36 (26-36) SECONDS Sodium (137-145) mmol/L Potassium (3.4-5.1) mmol/L Chloride (98-107) mmol/L Carbon Dioxide (22-32) mmol/L BUN (9-20) mg/dL Creatinine (0.66-1.25) mg/dL Estimated GFR (>60) mL/min BUN/Creatinine Ratio (6-22) Glucose (70-100) mg/dL Lactate 3.1 H (0.7-2.1) mmol/L Calcium (8.4-10.2) mg/dL Total Bilirubin (0.2-1.3) mg/dL AST (17-59) IU/L ALT (<50) IU/L Alkaline Phosphatase (38-126) U/L Total Protein (6.3-8.2) g/dL Albumin (3.5-5.0) g/dL Globulin (1.7-4.1) g/dL Albumin/Globulin Ratio (1.0-2.8) Ur Bilirubin Confirm (Negative) Urine RBC (0-5/HPF) Urine WBC (0-5/HPF) Ur Squamous Epith Cells (0-5/HPF) Urine Bacteria (None) Urine Mucus (Negative) Ur Culture Indicated? Salicylates (<20) mg/dL U Opiates 300ng/mL cut (Negative) Ur Oxycodone Screen (Negative) Urine Methadone Screen (Negative) Acetaminophen (10-30) ug/mL Ur Barbiturates Screen (Negative) U Tricyclic Antidepress (Negative) Ur Phencyclidine Scrn (Negative) Ur Amphetamines Screen (Negative) U Methamphetamines Scrn (Negative) Ur MDMA Scrn (Ecstasy) (Negative) U Benzodiazepines Scrn (Negative) Urine Cocaine Screen (Negative) U Marijuana (THC) Screen (Negative) Ethyl Alcohol ( - 10) mg/dL Urine Dip Bedside Urine Glucose Negative Bedside Urine Bilirubin + 1 Bedside Urine Ketone +/- 5 Urine Specific [place] 1.020 Bedside Urine Occult Blood - Negative Bedside Urine pH 6.0 Bedside Urine Protein +/- 15 Bedside Urine Urobilinogen 1+ 2mg Bedside Urine Nitrite - Negative Bedside Urine Leukocytes +/- 15 Esterase Point of care testing: Urine Dip Bedside Urine Glucose Negative Bedside Urine Bilirubin + 1 Bedside Urine Ketone +/- 5 Urine Specific [place] 1.020 Bedside Urine Occult Blood - Negative Bedside Urine pH 6.0 Bedside Urine Protein +/- 15 Bedside Urine Urobilinogen 1+ 2mg Bedside Urine Nitrite - Negative Bedside Urine Leukocytes +/- [address] scan - abdomen/pelvis: Radiologist's Impression: PROCEDURE: CT ABDOMEN PELVIS W CON INDICATIONS: vomiting blood TECHNIQUE: After the administration of intravenous contrast, axial sections acquired from the lung bases to the pubic symphysis. Coronal and sagittal reformats were performed. For radiation dose reduction, the following was used: automated exposure control, adjustment of mA and/or kV according to patient size. COMPARISON: None. FINDINGS: Image quality: Excellent. Lung bases: Unremarkable. Heart: No significant findings, but there is a small sliding hiatal hernia and severe para soft the illness varices extending from the abdomen cephalad into the posterior mediastinum above the imaging margin. ABDOMEN: Liver: Enlarged, heterogeneous, prominently fatty infiltrated, cirrhotic with nodular margination. A mass lesion is not discretely identified but the extent of hepatic abnormality would significantly limit the ability of this study to detect a discrete malignant mass. Gallbladder: The gallbladder contains several posterior layering small gallstones that are calcified, without evidence of acute cholecystitis. Biliary ducts: Unremarkable. Pancreas: Unremarkable. Spleen: Prominently enlarged measuring up to 21.3 cm craniocaudad, rotated with inferior tip anterior within the left upper quadrant. Adrenal Glands: Unremarkable. Kidneys and Ureters: Unremarkable. Stomach and Bowel: Stomach, small bowel loops, and colon are unremarkable. Peritoneum: Slight abnormal intraperitoneal fluid, mild peritoneal anasarca. No free air. Ventral Wall: No hernias. Abdominal Nodes: No retroperitoneal or mesenteric adenopathy by size criteria. Vessels: Aorta and inferior vena cava are normal in size. PELVIS: Pelvic Organs: Unremarkable. Bladder: Unremarkable. Pelvic Nodes: No enlarged lymph nodes. Miscellaneous: No hernias are seen. Bones: Unremarkable. IMPRESSION: A bleeding esophageal varix is a likely potential etiology for reported hematemesis. Severe cirrhosis, fatty infiltration, portal hypertension, and extensive varices extending from the abdomen in the paraesophageal space above the imaging margin into the posterior mediastinum. The liver is very heterogeneous and presence or absence of malignancy within the liver would not be accurately detected by this study. Several small calcified gallstones are present within the gallbladder lumen but no definite acute cholecystitis is associated. Minimal ascites, mild peritoneal anasarca pattern. Dictated by: Hany Xie M.D. on 07/09/2023 at 14:35 MDM Narrative Medical decision making narrative: [42] year old patient presents with suicidal ideation Prior Charts reviewed in our EMR Primary Historian: patient Labs reviewed and interpreted by myself:etoh 287 Consultations: Chris patient returns for the 2nd time in his many days now complaining of suicidal and homicidal ideations, he is currently intoxicated but stating he wants to kill himself with a kitchen knife and states that he is afraid he will harm our staff. Dr. Smalls: seen and evaluated, medically cleared. Med again will not take him until alcohol level is less than 100. Patient confirms still actively suicidal wanting to kill himself with a kitchen knife. 1330 patient started feeling nauseous bent over on the toilet vomiting bright red blood amounts a few drops less than a handful. Patient reports that he drinks at least 5th of vodka daily he has been doing so for the last 3 weeks. Patient is variceal bleed until otherwise. He denies any known varices. He thinks he is bleeding due to gingivitis however I looked at his gums and he has no obvious bleeding from his gums. Hemoglobin is stable platelets remain low at 41 lactate at 4.4. Elevated bilirubin 7.0, AST 215 alk-phos 163. 1500 Dr. Stephen, [facility] updated on patient's symptoms test results agrees with transferring. Recommends octreotide drip. Dr. Peralta hospitalist accepted Critical Care Time <Brooke Smalls, DO - Last Filed: 07/09/23 18:30> Critical Care Time Critical Care Time: Yes Total Critical Care Time: 45 Attestation: The high probability of a clinically significant, sudden or life threatening deterioration of the [cardiovascular] system(s) required my full and direct attention, intervention and personal management. The aggregate critical care time was [45] minutes. This time is in addition to time spent performing reported procedures but includes the following: [x] Data Review and interpretation [x] Patient assessment and monitoring of vital signs [x] Documentation [x] Medication orders and management Discharge Plan Departure Patient Disposition: [facility] Clinical Impression: Acute GI bleeding, Suicidal ideations Referrals: ProviderRd [Primary Care Provider] -
[2023-07-09 04:45] LABS: Basophils Absolute Auto 0 /uL (0-100); Basophils Percent Auto 0.6 % (0-2); Eosinophils Absolute Auto 200 /uL (0-450); Eosinophils Percent Auto 4.5 % (2-4); Hematocrit 40.9 % (41-53); Hemoglobin 14.4 g/dL (13.5-17.5); Lymphocytes Absolute Auto 1200 /uL (1100-4500); Lymphocytes Percent Auto 30.8 % (25-40); Mean Corpuscular HGB Conc 35.1 % (30-36); Mean Corpuscular Hemoglobin 32.2 PG (26-34); Mean Corpuscular Volume 91.7 fL (80-100); Monocytes Absolute Auto 400 /uL (0-900); Monocytes Percent Auto 9.7 % (3-14); Neutrophils Absolute Auto 2100 /uL (1500-7000); Neutrophils Percent Auto 54.4 % (50-75); Platelet Count 41 X10^3/uL (150-400); Red Blood Cell Count 4.46 X10^6/uL (4.5-5.9); Red Cell Distribution Width 21.4 % (11.6-14.8); White Blood Cell Count 3.9 X10^3/uL (4.5-11.0)
[2023-07-09 04:49] LABS: Acetaminophen < 10 ug/mL (10-30); Salicylate < 1.0 mg/dL (<20)
[2023-07-09 04:51] LABS: Alanine Aminotransferase 42 IU/L (<50); Albumin 3.7 g/dL (3.5-5.0); Albumin Globulin Ratio 0.9 (1.0-2.8); Alkaline Phosphatase 163 U/L (38-126); Aspartate Aminotransferase 215 IU/L (17-59); Calcium 8.1 mg/dL (8.4-10.2); Carbon Dioxide 23 mmol/L (22-32); Chloride 107 mmol/L (98-107); Estimated Glomerular Filt Rate > 60 mL/min (>60); Ethanol (ETOH) 287 mg/dL; Globulin 3.9 g/dL (1.7-4.1); Glucose 99 mg/dL (70-100); HEMOLYSIS < 15 (0-50); Potassium 3.4 mmol/L (3.4-5.1); Sodium 144 mmol/L (137-145); Total Protein 7.6 g/dL (6.3-8.2)
[2023-07-09 04:53] LABS: Add Manual Diff / Slide Review SLIDE REVIEW; BUN Creatinine Ratio 3.1 (6-22); Blood Urea Nitrogen < 2 mg/dL (9-20)
--- NOTE | 2023-07-09 05:22 | PC.NURSE ---
TEACHERS AIDE note: While watching the patient, patient was crying. Patient sat up and said I'm going to kill myself now. Please help me! Call [facility] now! He continued to cry and say It's too hard for veterans to get help.
--- NOTE | 2023-07-09 06:07 | PC.NURSE ---
PT becoming increasingly belligerent and verbally aggressive towards staff. Pt recording and video taping nursing staff, then refusing to delete the videos. Pt coming out of room verbally berating staff that we aren't doing our jobs correctly. Pt then stated I want to leave and I'm not suicidal anymore Provider in room telling patient he can't leave. Called patient's command have the have a front desk representative here for patient.
[2023-07-09 06:25] LABS: Anisocytosis 3+
[2023-07-09 06:26] LABS: Platelet Estimate Decreased on smear
--- NOTE | 2023-07-09 07:29 | PC.NURSE ---
report received, care assumed. pt asleep, RR even, unlabored, arousable to verbal stimuli. standby with lab for rpt ETOH draw. Pt cooperative with blood draw. no acute medical distress noted at this time.
--- NOTE | 2023-07-09 07:44 | PC.NURSE ---
Dr. Smalls at bedside
[2023-07-09 07:45] LABS: Ethanol (ETOH) 233 mg/dL
--- NOTE | 2023-07-09 09:39 | PC.NURSE ---
PT resting comfortably on stretcher, RR even, unlabored, equal chest rise and fall. continuous observation in place with 1:1 sitter as well as command at bedside. no acute medical distress noted.
--- NOTE | 2023-07-09 10:14 | PC.NURSE ---
pt easily arousable, calm, cooperative at this time. notified of food available in room, pt aware. pt continues to endorse SI, states my plan is to use knives, pt reports hx of similar thoughts and plan. denies AVH. denies HI at this time.
[2023-07-09 11:19] LABS: UR Morphine/Opiate cutoff 300 Negative (Negative); Ur Creatinine Normal (Normal); Ur Specific Gravity Normal (Normal); Urine Amphetamines Negative (Negative); Urine Barbiturates Positive (Negative); Urine Benzodiazepines Negative (Negative); Urine Cocaine Negative (Negative); Urine MDMA Negative (Negative); Urine Methadone Negative (Negative); Urine Methamphetamines Negative (Negative); Urine Oxycodone Negative (Negative); Urine Phencyclidine Negative (Negative); Urine Tetrahydrocannabinol Positive (Negative); Urine Tricyclic Antidepressant Negative (Negative); Urine pH Normal (Normal)
[2023-07-09 11:55] LABS: Ictotest Urine Positive (Negative)
--- NOTE | 2023-07-09 12:03 | PC.NURSE ---
called lab regarding 1200 re-draw, lab looking into current specimen processing, to send someone to re-draw
[2023-07-09 12:04] LABS: Mucus Urine 4+ (Negative); RBC Urine 1-5/HPF (0-5/HPF)
[2023-07-09 12:05] LABS: Bacteria Urine Moderate (10-30); Culture Indicated Urine Specimen Cultured; Squamous Epithelial Cell Urine 0-1 /HPF (0-5/HPF); WBC Urine None Seen (0-5/HPF)
--- NOTE | 2023-07-09 12:24 | PC.NURSE ---
lab at bedside for re-draw
[2023-07-09 12:54] LABS: Ethanol (ETOH) 159 mg/dL
--- NOTE | 2023-07-09 13:30 | DI.CT.S_ITS ---
PROCEDURE: CT ABDOMEN PELVIS W CON INDICATIONS: vomiting blood TECHNIQUE: After the administration of intravenous contrast, axial sections acquired from the lung bases to the pubic symphysis. Coronal and sagittal reformats were performed. For radiation dose reduction, the following was used: automated exposure control, adjustment of mA and/or kV according to patient size. COMPARISON: None. FINDINGS: Image quality: Excellent. Lung bases: Unremarkable. Heart: No significant findings, but there is a small sliding hiatal hernia and severe para soft the illness varices extending from the abdomen cephalad into the posterior mediastinum above the imaging margin. ABDOMEN: Liver: Enlarged, heterogeneous, prominently fatty infiltrated, cirrhotic with nodular margination. A mass lesion is not discretely identified but the extent of hepatic abnormality would significantly limit the ability of this study to detect a discrete malignant mass. Gallbladder: The gallbladder contains several posterior layering small gallstones that are calcified, without evidence of acute cholecystitis. Biliary ducts: Unremarkable. Pancreas: Unremarkable. Spleen: Prominently enlarged measuring up to 21.3 cm craniocaudad, rotated with inferior tip anterior within the left upper quadrant. Adrenal Glands: Unremarkable. Kidneys and Ureters: Unremarkable. Stomach and Bowel: Stomach, small bowel loops, and colon are unremarkable. Peritoneum: Slight abnormal intraperitoneal fluid, mild peritoneal anasarca. No free air. Ventral Wall: No hernias. Abdominal Nodes: No retroperitoneal or mesenteric adenopathy by size criteria. Vessels: Aorta and inferior vena cava are normal in size. PELVIS: Pelvic Organs: Unremarkable. Bladder: Unremarkable. Pelvic Nodes: No enlarged lymph nodes. Miscellaneous: No hernias are seen. Bones: Unremarkable. IMPRESSION: A bleeding esophageal varix is a likely potential etiology for reported hematemesis. Severe cirrhosis, fatty infiltration, portal hypertension, and extensive varices extending from the abdomen in the paraesophageal space above the imaging margin into the posterior mediastinum. The liver is very heterogeneous and presence or absence of malignancy within the liver would not be accurately detected by this study. Several small calcified gallstones are present within the gallbladder lumen but no definite acute cholecystitis is associated. Minimal ascites, mild peritoneal anasarca pattern. Dictated by: Hany Xie M.D. on 07/09/2023 at 14:35 Approved by: Hany Xie M.D. on 07/09/2023 at 14:46
[2023-07-09 13:49] LABS: Hematocrit 41.7 % (41-53); Hemoglobin 14.2 g/dL (13.5-17.5)
[2023-07-09] MEDS: LORazepam 0.5 MG TABLET 2 MG PO (13:54)
[2023-07-09] MEDS: PANTOPRAZOLE 40 MG VIAL 80 MG IV (13:54)
[2023-07-09] MEDS: ONDANSETRON 4 MG/2 ML INJ IV (13:54)
[2023-07-09 13:58] LABS: Lactate (Lactic Acid) 4.4 mmol/L (0.7-2.1)
--- NOTE | 2023-07-09 14:07 | PC.NURSE ---
Patient left department with biological science technician fish.
[2023-07-09] MEDS: SODIUM CHLORIDE 0.9% 1,000 ML 1000 ML IV (14:30)
[2023-07-09 15:18] LABS: Reflexed Lactate in 2 Hours Y
[2023-07-09] MEDS: OCTREOTIDE 100 MCG/ML VIAL 50 MCG IV (15:21)
[2023-07-09] MEDS: OCTREOTIDE 500 MCG in SODIUM CHLORIDE 0.9% 100 ML 10.1 MCG IV (15:21)
--- NOTE | 2023-07-09 15:41 | PC.NURSE ---
During psychiatric symptom assessment patient stated that he wants to harm himself with knives and they are present at his home and that he wants to harm shadows he sees and clarified with patient if he meant hallucinations. Patient stated that the shadows are hallucinations and he is clear that he doesn't want to harm others with knives at this time. At time of assessment patient denies hallucinations.
[2023-07-09 15:44] LABS: INR 1.6 (0.9-1.3); Prothrombin Time 18.8 SECONDS (10.1-12.7)
[2023-07-09 15:46] LABS: Lactate 2HR (Lactic Acid Rflx) 3.1 mmol/L (0.7-2.1)
[2023-07-09 15:47] LABS: PTT Partial Thromboplastin Tim 36 SECONDS (26-36)
[2023-07-09] MEDS: SODIUM CHLORIDE 0.9% 1,000 ML 150 ML IV (16:13)
--- NOTE | 2023-07-09 16:25 | PC.NURSE ---
[facility] called back the bed is available and transport can be set up for the patient. patient is going to room 444. RN accepting the patient is Judi at [phone] at extension [phone]. home paraprofessional, provider and primary RN aware.
--- NOTE | 2023-07-09 16:31 | CM.SWNOTE ---
ED BURLING AND JOINING SUPERVISOR Assessment Note Patient presents to ED early this morning for the second time this week. Upon arrival patient presents with SI statements with plan of using a knife, patient endorses ETOH use as well. Patient endorses he is seeking hospitalization at [facility]. Per ED provider, Frances stated they will not accept patient until his BAL is under 100, at 1200 patient's BAL is 159. BURLING AND JOINING SUPERVISOR briefly meets with patient, he endorses SI with thoughts of using a knife, patient endorses thoughts of using a knife on others but denies intent. Patient endorses he is experiencing internal stimuli and experiencing hallucinations. Later, RN meets with patient and patient endorses he wants to kill/harm his hallucinations not people, see RN note. BURLING AND JOINING SUPERVISOR calls [facility] regarding patient's updated BAL lab, intake reports that after their team reviewed patient's case further they state that they would review patient further when his BAL is at the legal limit. Shortly after this phone call, patient presents coughing up blood, further labs and testings are done. There is further concern that patient is not medically clear and experiencing an upper GI bleed. BURLING AND JOINING SUPERVISOR calls [facility] back regarding patient and reports patient's need for medical transfer per ED provider. ED provider speaks with [facility] hospitalist and ultimately [facility] declines. ED team searches transfer for patient, Patient is now accepted at [facility] for further medical care, patient to be evaluated further for detox and SI, & hallucinations. Plan: patient to transfer to [facility] for higher level of care. Leanna Ortega, PERSONAL LINES AGENT
--- NOTE | 2023-07-09 18:22 | PC.NURSE ---
REAL ESTATE REPRESENTATIVE Note - Patient given mouthwash, toothbrush, and toothpaste to help clean up before transfer
--- NOTE | 2023-07-10 00:40 | PC.NURSE ---
Late entry: Patient left at 1835 with NS and Octreotide infusing.
== END 2023-07-09 18:35 | disposition short-term general hospital (02) ==
PROVIDERS: Emergency Medicine; Emergency Provider Emergency Medicine
DX: K92.2 Gastrointestinal hemorrhage, unspecified (principal); R45.851 Suicidal ideations; F10.129 Alcohol abuse with intoxication, unspecified; Y90.6 Blood alcohol level of 120-199 mg/100 ml
CPT/HCPCS: 36415; 74177; 80053; 80305; 80320; 80329; 81003; 81015; 83605; 85014; 85018; 85025; 85610; 85730; 87086; 96365; 96366; 96375; 99285; 99291; C9113; G0480; J2354; J2405; Q9967

== ENCOUNTER → 2023-11-25 16:36 | Outpatient (CLI) | payer OTHER, SELFPAY ==
--- NOTE | 2023-11-25 | DI.ECHO.S_ITS ---
[facility]---------+ [facility] +---------+ : : [address] [place] [address] : : : : [id number] : : : : Phone: [phone]+ Echocardiogram Report + + :Name: KENNEDI WALLACE Study Date: 11/25/2023 Height: 71 in : :[facility] ReadingLocation: Weight: 218 lb : : Gender: Male BSA: 2.2 m2 : :: 1980 Age: 43 yrs BP: 164/86 mmHg: :Reason For Study: TACHYCARDIA : :Ordering Physician: BASILIO, : :RASTA Performed By: Rolo Genao : :Referring: RASTA RICHMOND : + + Interpretation Summary The ejection fraction is estimated to be 60-65%. Diastolic parameters suggest probable normal left ventricular diastolic function and normal filling pressures. The left atrium is borderline dilated. The right ventricle is borderline dilated. The right ventricular systolic function is normal. No significant valvular abnormalities. Pulmonary artery pressures cannot be estimated because of the lack of a measurable TR jet velocity but the IVC suggests a CVP of around 3 mmHg. Procedure: A two-dimensional transthoracic echocardiogram with color flow and Doppler was performed. The study quality was technically adequate. There is no prior echocardiogram noted for this patient. The patient was in normal sinus rhythm during the exam. The heart rate ranged between 73-93 bpm during the study. Left Ventricle: The left ventricle is normal in size and wall thickness. The ejection fraction is estimated to be 60-65%. Diastolic parameters suggest probable normal left ventricular diastolic function and normal filling pressures. Right Ventricle: The right ventricle is borderline dilated. The right ventricular systolic function is normal. Atria: The left atrium is borderline dilated. The right atrium is mildly dilated. The interatrial septum grossly appears intact with no obvious evidence for an atrial septal defect. Mitral Valve: The mitral valve is normal in structure and function. There is no mitral valve stenosis. There is no mitral regurgitation noted. Aortic Valve: The aortic valve is trileaflet. There is no aortic valve stenosis. No aortic regurgitation is present. Tricuspid Valve: The tricuspid valve is normal in structure and function. There is no tricuspid stenosis. No tricuspid regurgitation. Pulmonary artery pressures cannot be estimated because of the lack of a measurable TR jet velocity but the IVC suggests a CVP of around 3 mmHg. Pulmonic Valve: The pulmonic valve is not well visualized. There is no pulmonic valvular stenosis. There is no pulmonic valvular regurgitation. Great Vessels: The aortic root is normal size. The dimensions of the ascending aorta are normal. The IVC is of normal diameter and collapses greater than 50% with a sniff. This suggests a low right atrial pressure of 3 mm Hg. Pericardium/ Pleura There is no pericardial effusion. There is no pleural effusion. MMode/2D Measurements & Calculations LVIDd: 4.9 cm LVOT diam: 2.3 cm LVIDs: 3.4 cm Ao root diam: 3.0 cm FS: 30.6 % asc Aorta Diam: 3.0 cm IVSd: 0.99 cm Ao Arch Diam (Prox Trans): 2.5 cm LVPWd: 0.94 cm LV howard. diameter/BSA (cm/m^2): 2.2 LV sys. diameter/BSA (cm/m^2): 1.6 LA A2 area: 25.8 cm2 RA long axis: 5.3 cm LA A4 area: 30.1 cm2 RA area: 20.3 cm2 LA length (vol): 6.5 cm RA vol: 65.7 ml LA vol: 102.2 ml RA : 30.0 ml/m2 LA vol index: 46.7 ml/m2 IVC diam: 1.8 cm RVD1 (basal): 4.3 cm RVD2 (mid): 4.4 cm TAPSE: 3.2 cm Doppler Measurements & Calculations Ao V2 max: 170.1 cm/sec LVOT Max Edgar: 153.9 cm/sec Ao V2 mean: 120.0 cm/sec LV V1 max P.5 mmHg Ao max P.6 mmHg LV V1 VTI: 33.9 cm Ao mean P.5 mmHg DENISHA(I,D): 4.4 cm2 Ao V2 VTI: 33.3 cm DENISHA(V,D): 3.9 cm2 sev ratio: 1.0 DENISHA indexed to BSA (cm^2/m^2): 2.0 MV E max edgar: 102.4 cm/sec PA V2 max: 119.7 cm/sec MV A max edgar: 91.9 cm/sec PA V2 mean: 87.2 cm/sec MV E/A: 1.1 PA mean P.3 mmHg Med Peak E' Edgar: 9.7 cm/sec PA pr(Accel): 29.3 mmHg E/E' med: 10.5 Lat Peak E' Edgar: 8.6 cm/sec E/E' lat: 11.9 E/e' average: 11.2 MV dec time: 0.18 sec SV(LVOT): 146.1 ml Reading Physician:09:22 PM
== END ==
PROVIDERS: Referring Provider Chiropractor; Visit Provider Chiropractor
DX: R00.0 Tachycardia, unspecified (principal)
CPT/HCPCS: 93306

== ENCOUNTER → 2023-12-13 13:20 | Outpatient (CLI) | payer OTHER, SELFPAY ==
--- NOTE | 2023-12-13 13:24 | DI.RAD.S_ITS ---
PROCEDURE: XR NASAL BONES MIN 3V INDICATIONS: NASAL FRACTURE TECHNIQUE: 3 views of the nasal bones acquired. COMPARISON: None. FINDINGS: Bones: No fractures or dislocations. Mild irregularity of the nasal bone, may be sequela of prior fracture. Nasal septum is midline. Normal nasociliary nerve grooves are noted. Soft tissues: No suspicious soft tissue calcifications. IMPRESSION: No displaced fracture. Dictated by: Tyson Wood M.D. on 12/13/2023 at 15:12 Approved by: Tyson Wood M.D. on 12/13/2023 at 15:19
== END ==
PROVIDERS: Referring Provider Chiropractor; Visit Provider Chiropractor
DX: R00.0 Tachycardia, unspecified (principal); S02.2XXA Fracture of nasal bones, initial encounter for closed fracture
CPT/HCPCS: 70160; 93005